=== PATIENT | male | born 1975 | race Caucasian/White ===

== ENCOUNTER 2016-06-27 07:38 | Emergency (ER) | payer MEDICAID ==
[~2016-06-27] VITALS: Ht 167.6 cm; Wt 78.0 kg
[~2016-06-27 07:38] MED LIST: ACET-6134 PO; ASPI81CT89 PO; IBUP-2213 PO; LISI-420 PO; METF1000 PO; PAX20 PO
[2016-06-27 07:49] VITALS: BP 126/76
--- NOTE | 2016-06-27 07:55 | NUR ---
AMBULATED TO ER BED 7
--- NOTE | 2016-06-27 07:59 | NUR ---
PATIENT PRESENTS TO ED WITH C/O OF THROAT PAIN . PT STATES HE HAS BEEN FEELING THROAT PAIN FOR THE LAST THREE DAYS. PATIENT ALSO REPORTS OF DIARRHEA AND NAUSEA BUT DENIES VOMITING; SKIN IS PINK/WARM/DRY; AAOX4 WITH EVEN AND STEADY GAIT; LUNGS CLEAR BL; HR EVEN AND REGULAR; PT DENIES ANY FEVER, CP, SOB, OR COUGH AT THIS TIME; PATIENT STATES PAIN OF 10/10 AT THIS TIME; VSS; PATIENT POSITIONED FOR COMFORT; HOB ELEVATED; BEDRAILS UP X2; BED DOWN. ER MD MADE AWARE OF PT STATUS.
--- NOTE | 2016-06-27 08:16 | NUR ---
Patient being evaluated by physician at bedside.
[2016-06-27] MEDS ORDERED: MORPHINE SULFATE 2 MG/ML SYR IVP ONE (08:25)
[2016-06-27] MEDS ORDERED: ONDANSETRON 4 MG/2 ML VIAL IVP ONE (08:25)
[2016-06-27] MEDS ORDERED: NACL 0.9% 2,000 ML IV ONE (08:25)
[2016-06-27] MEDS ORDERED: CLINDAMYCIN 600 MG in DEXTROSE 5% 50 ML IV ONE (08:25)
[2016-06-27 08:41] LABS: HEMOGLOBIN 13.8 g/dL (12.0-18.0)
[2016-06-27 08:44] LABS: HEMATOCRIT 41.7 % (36-52); MEAN CORPUSCULAR HEMOGLOBIN 30 pg (27-31); MEAN CORPUSCULAR HGB CONC 33 g/dL (33-37); MEAN CORPUSCULAR VOLUME 89 fL (80-94); PLATELET COUNT (AUTO) 254 K/uL (140-450); RED BLOOD CELL COUNT(AUTO) 4.67 MIL/uL (4.20-6.10); RED CELL DISTRIBUTION WIDTH 12.2 % (11.6-13.7); WHITE BLOOD COUNT (AUTO) 18.9 K/uL (4.8-10.8)
[2016-06-27] MEDS ORDERED: CLINDAMYCIN 600 MG/4 ML VIAL ONE ×2 (08:49→09:06)
[2016-06-27 08:58] LABS: CALCIUM 8.4 mg/dL (8.5-10.1); CARBON DIOXIDE 26.8 mmol/L (21-32); CREATININE 0.9 mg/dL (0.6-1.3); POTASSIUM 3.8 mmol/L (3.5-5.1)
[2016-06-27 09:00] LABS: BAND % (MANUAL) 2 % (0-8); EOSINOPHILS % (MANUAL) 1 % (0-4); LYMPHOCYTES % (MANUAL) 8 % (20-46); MONOCYTES % (MANUAL) 5 % (5-12); NEUTROPHILS % (MANUAL) 84 (43-65); PLATELET ESTIMATE ADEQUATE
[2016-06-27 09:02] LABS: ALBUMIN 3.7 g/dL (3.4-5.0); TOTAL BILIRUBIN 0.4 mg/dL (0.0-1.0)
[2016-06-27 09:06] LABS: LACTIC ACID 0.9 mmol/L (0.4-2.0)
--- NOTE | 2016-06-27 09:17 | NUR ---
PATIENT LEFT FOR CT
[2016-06-27] MEDS ORDERED: KETOROLAC 30 MG/ML VIAL IVP ONE (09:40)
[2016-06-27] MEDS ORDERED: DEXAMETHASONE 10 MG/ML VIAL IVP ONE (09:40)
--- NOTE | 2016-06-27 10:00 | NUR ---
PATIENT ASLEEP IN BED. NO S/S OF DISTRESS NOTED. PATIENT'S PRESENT AT BEDSIDE
--- NOTE | 2016-06-27 10:24 | NUR ---
Dr. Mascorro re-evaluating patient at bedside.
[2016-06-27] MEDS ORDERED: MORPHINE SULFATE 4 MG/ML SYR IVP ONE (10:30)
--- NOTE | 2016-06-27 11:45 | NUR ---
CYRACOM USED BY THE DR TO SPEAK WITH THE PATIENT. NEGATIVE TURNER APPRENTICE INDIRA NEGATIVE TURNER APPRENTICE NUMBER [id number]
--- NOTE | 2016-06-27 11:46 | NUR ---
Dr. Mascorro re-evaluating patient at bedside.
[2016-06-27] MEDS ORDERED: HYDROcodone/APAP 10/325 MG 1 TAB TAB PO ONE (12:00)
--- NOTE | 2016-06-27 13:00 | NUR ---
Dr. Mascorro re-evaluating patient at bedside.
--- NOTE | 2016-06-27 13:15 | NUR ---
Patient discharged with v/s stable. Written and verbal after care instructions given and explained. Patient alert, oriented and verbalized understanding of instructions. Ambulatory with steady gait. All questions addressed prior to discharge. ID band removed. Patient advised to follow up with PMD. Rx of MOTRIN, NORCO, KEFLEX given. Patient educated on indication of medication including possible reaction and side effects. Opportunity to ask questions provided and answered.
[2016-06-27 13:18] VITALS: BP 118/77
[2016-06-29 10:09] LABS: HIV 1/0/2 ABS, QUAL Non Reactive (Non Reactive)
== END 2016-06-27 13:15 | disposition home or self-care (01) ==
LOC: MED 07:38
DX: J02.0 Streptococcal pharyngitis (principal); E11.9 Type 2 diabetes mellitus without complications; K21.9 Gastro-esophageal reflux disease without esophagitis; I10 Essential (primary) hypertension; Z79.82 Long term (current) use of aspirin; Z79.899 Other long term (current) drug therapy
CPT/HCPCS: 36415; 70491; 71010; 80053; 82948; 83605; 85025; 86702; 87040; 87081; 87804; 96365; 96375; 96376; 99285; J1100; J1885; J2270; J2405; J3490; J7030; J7060; Q0092; Q9967

== ENCOUNTER 2017-07-06 18:20 | Emergency (ER) | payer SELFPAY ==
[~2017-07-06] VITALS: Ht 170.2 cm; Wt 72.6 kg
[2017-07-06 18:28] VITALS: BP 139/87
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
--- NOTE | 2017-07-06 18:51 | NUR ---
PT SITTING UP IN BED, IN NAD. RESP EVEN AND UNLABORED,DENIES CP OR SOB. IN NAD. PT HERE WITH MULTIPLE COMPLAINTS. REPORTS NECK PAIN, DENIES TRAUMA. GENERALIZED WEAKNESS WITH CHANGE IN APPETITE. DENIES FEVERS/NAUSEA/VOMITTING/DIARRHEA. STATES. PT AAOX4, AILYN WORKERS COMPENSATION ADMINISTRATOR EQUAL, AMBUALTORY IN ER. SKIN W/D/I. ABD SOFT, NT TO PALPATION. REPORTS MILD HEADACHE WITH DIZZINES UPON STANDING. DENIES ANY VISION CHNAGES. IV SL INSERTED, AWAIITNG FOR ER MD CARTAGENA. SR ON MONITOR. VSS
[2017-07-06] MEDS ORDERED: NACL 0.9% 1,000 ML IV ONE ×2 (19:00→20:10)
[2017-07-06] MEDS ORDERED: KETOROLAC 30 MG/ML VIAL IVP ONE (19:00)
--- NOTE | 2017-07-06 19:17 | NUR ---
PT RESTING IN BED, RR EVEN AND UNLABORED. PT REPORTS 01/10 PAIN, ADMINISTERED 30MG TORADOL IVP ORDERED, STARTED NS BOLUS AT THIS TIME. COLLECTED INFLUENZA SWAB AND GIVEN TO COST CONTROL SUPERVISOR, COST CONTROL SUPERVISOR AT BEDSIDE TO DRAW BLOOD WORK. Addendum: 07/06/17 at 1943 by RAMESH RECEIVED REPORT FROM CHRISTOPHE MATRINEZ
[2017-07-06 19:24] LABS: BASOPHILS % (AUTO) 0.7 % (0.0-2.0); EOSINOPHILS # (AUTO) 0.1 K/uL (0-0.4); EOSINOPHILS % (AUTO) 2.1 % (0.0-4.0); HEMATOCRIT 37.6 % (36-52); HEMOGLOBIN 12.8 g/dL (12.0-18.0); LYMPHOCYTES # (AUTO) 1.6 K/uL (2.0-11.5); LYMPHOCYTES % (AUTO) 27.2 % (20.5-51.1); MEAN CORPUSCULAR HEMOGLOBIN 30 pg (27-31); MEAN CORPUSCULAR HGB CONC 34 g/dL (33-37); MEAN CORPUSCULAR VOLUME 87.5 fL (80-94); MONOCYTES # (AUTO) 0.5 K/uL (0.8-1.0); NEUTROPHILS # (AUTO) 3.6 K/uL (1.8-7.7); PLATELET COUNT (AUTO) 218 K/uL (140-450); WHITE BLOOD COUNT (AUTO) 5.9 K/uL (4.8-10.8)
[2017-07-06 19:46] LABS: ALBUMIN 3.5 g/dL (3.4-5.0); ANION GAP 11.5 (8-16); CARBON DIOXIDE 28.6 mmol/L (21-32); POTASSIUM 4.1 mmol/L (3.5-5.1); TOTAL BILIRUBIN 0.2 mg/dL (0.0-1.0)
[2017-07-06 19:56] LABS: CREATINE KINASE MB 2.6 ng/mL (0-3.6)
[2017-07-06] MEDS ORDERED: MORPHINE SULFATE 4 MG/ML SYR IVP ONE (20:10)
[2017-07-06 21:12] VITALS: BP 125/85
--- NOTE | 2017-07-06 21:12 | NUR ---
Patient discharged with v/s stable. Written and verbal after care instructions given and explained. Patient alert, oriented and verbalized understanding of instructions. Ambulatory with steady gait. All questions addressed prior to discharge. ID band removed. Patient advised to follow up with PMD. Rx of NAPROSYN 500MG given. Patient educated on indication of medication including possible reaction and side effects. Opportunity to ask questions provided and answered.
== END 2017-07-06 21:12 | disposition home or self-care (01) ==
LOC: MED 18:20
DX: M79.1 Myalgia (principal); R53.1 Weakness; E11.9 Type 2 diabetes mellitus without complications; K21.9 Gastro-esophageal reflux disease without esophagitis; I10 Essential (primary) hypertension; Z79.84 Long term (current) use of oral hypoglycemic drugs; Z79.82 Long term (current) use of aspirin; Z79.899 Other long term (current) drug therapy
CPT/HCPCS: 36415; 71045; 80053; 82550; 82553; 82948; 83690; 84484; 85025; 87804; 93005; 96361; 96374; 96375; 99285; J1885; J2270; Q0092

== ENCOUNTER 2017-09-24 14:23 | Emergency (ER) | payer MEDICAID ==
[~2017-09-24] VITALS: Ht 165.1 cm; Wt 72.6 kg
[2017-09-24 14:31] VITALS: BP 123/71
--- NOTE | 2017-09-24 14:36 | NUR ---
PT AMBULATES BACK TO THE LOBBY
--- NOTE | 2017-09-24 15:12 | NUR ---
PATIENT AMULATED TO ER BED 6
--- NOTE | 2017-09-24 15:13 | NUR ---
42Y/M BIB SELF C/O RT LEG PAIN INGUENAL AREA AND LATERAL LOWER LEG WITH DISCOLORATION X 8 DAYS; S/P FALL PLAYING SOCCER; DENIES ALOC, DIZZINESS OR N/VD, ABLE TO AMBULATE. AAOX4 WITH EVEN AND STEADY GAIT; PATIENT STATES PAIN OF 10/10 AT THIS TIME; VSS; PATIENT POSITIONED FOR COMFORT; HOB ELEVATED; BEDRAILS UP X1; BED DOWN. ER MD MADE AWARE OF PT STATUS.
--- NOTE | 2017-09-24 16:55 | NUR ---
Dr. Hernandez evaluating patient at bedside.
[2017-09-24 18:45] VITALS: BP 122/70
== END 2017-09-24 18:45 | disposition home or self-care (01) ==
LOC: MED 14:23
DX: S76.911A Strain of unspecified muscles, fascia and tendons at thigh level, right thigh, initial encounter (principal); E11.9 Type 2 diabetes mellitus without complications; K21.9 Gastro-esophageal reflux disease without esophagitis; I10 Essential (primary) hypertension; X58.XXXA Exposure to other specified factors, initial encounter; Y93.89 Activity, other specified; Y99.8 Other external cause status; Y92.89 Other specified places as the place of occurrence of the external cause
CPT/HCPCS: 93971; 99284; Q0092

== ENCOUNTER 2018-03-07 17:24 | Emergency (ER) | payer MEDICAID ==
[~2018-03-07] VITALS: Ht 162.6 cm; Wt 72.1 kg
[2018-03-07 17:30] VITALS: BP 150/75
[2018-03-07] MEDS ORDERED: KETOROLAC 60 MG/2 ML VIAL IM ONE (18:35)
[2018-03-07] MEDS ORDERED: fentaNYL 0.05 MG/ML VIAL IM ONE (20:10)
[2018-03-07 21:00] VITALS: BP 150/75
== END 2018-03-07 21:00 | disposition home or self-care (01) ==
LOC: MED 17:24
DX: S39.012A Strain of muscle, fascia and tendon of lower back, initial encounter (principal); E11.9 Type 2 diabetes mellitus without complications; K21.9 Gastro-esophageal reflux disease without esophagitis; I10 Essential (primary) hypertension; Z79.84 Long term (current) use of oral hypoglycemic drugs; Z79.82 Long term (current) use of aspirin; Z79.899 Other long term (current) drug therapy; X58.XXXA Exposure to other specified factors, initial encounter; Y93.89 Activity, other specified; Y92.89 Other specified places as the place of occurrence of the external cause; Y99.8 Other external cause status
CPT/HCPCS: 81002; 96372; 99283; J1885; J3010

== ENCOUNTER 2018-08-28 03:15 | Emergency (ER) | payer MEDICAID ==
[~2018-08-28] VITALS: Ht 167.6 cm; Wt 76.2 kg
[~2018-08-28 03:15] MED LIST changes: +ASPI-1718 PO; -ASPI81CT89 PO
[2018-08-28 03:20] VITALS: BP 122/76
--- NOTE | 2018-08-28 03:25 | NUR ---
PT TAKEN TO BED 3
--- NOTE | 2018-08-28 03:30 | NUR ---
PT BIB SELF C/O DIARRHEA. PT STATES DIARRHEA STARTED TODAY, DENIES TRAUMA, INJURY OR EVIDENCE OF BLOOD IN STOOL; STATES HE TOOK XENIA SELTZER AND PEPTO AT HOME W/O RELIEF. PT STATES 01/10 ABD CRAMPING. PT ACTING APPROPRIATLY, SPEAKING IN CLEAR AND COMPLETE SENTENCES. BREATHING EQUAL AND UNLABORED. ACTIVE BOWEL SOUNDS THROUGH OUT. PT IN GOWN, IN BED; BED IN LOWER LOCKED POSITION. PENDING ER MD CARTAGENA. PMH: DIABETES, HTN
[2018-08-28] MEDS ORDERED: DICYCLOMINE HCL LIQUID 10 MG/5 ML UDC PO ONE (04:15)
[2018-08-28] MEDS ORDERED: NACL 0.9% 1,000 ML IV ONE (04:15)
[2018-08-28] MEDS ORDERED: KETOROLAC 30 MG/ML VIAL IVP ONE (04:15)
[2018-08-28 04:34] LABS: BASOPHILS % (AUTO) 0.5 % (0.0-2.0); EOSINOPHILS # (AUTO) 0.2 K/uL (0-0.4); EOSINOPHILS % (AUTO) 2.4 % (0.0-4.0); HEMATOCRIT 41.1 % (36-52); HEMOGLOBIN 14.1 g/dL (12.0-18.0); LYMPHOCYTES # (AUTO) 1.8 K/uL (2.0-11.5); LYMPHOCYTES % (AUTO) 26.7 % (20.5-51.1); MEAN CORPUSCULAR HEMOGLOBIN 30 pg (27-31); MEAN CORPUSCULAR HGB CONC 34 g/dL (33-37); MEAN CORPUSCULAR VOLUME 88.2 fL (80-94); MONOCYTES # (AUTO) 0.6 K/uL (0.8-1.0); MONOCYTES % (AUTO) 9.5 % (1.7-9.3); NEUTROPHILS # (AUTO) 4.1 K/uL (1.8-7.7); NEUTROPHILS % (AUTO) 60.9 % (42.2-75.2); PLATELET COUNT (AUTO) 234 K/uL (140-450); RED BLOOD CELL COUNT(AUTO) 4.67 MIL/uL (4.20-6.10); RED CELL DISTRIBUTION WIDTH 13.4 % (11.6-13.7); WHITE BLOOD COUNT (AUTO) 6.7 K/uL (4.8-10.8)
[2018-08-28 04:53] LABS: ALBUMIN 3.7 g/dL (3.4-5.0); ANION GAP 10.8 (8-16); CARBON DIOXIDE 27.1 mmol/L (21-32); CREATININE 0.8 mg/dL (0.7-1.3); POTASSIUM 3.9 mmol/L (3.5-5.1); TOTAL BILIRUBIN 0.2 mg/dL (0.0-1.0)
--- NOTE | 2018-08-28 05:00 | NUR ---
BLANKET AND COMFORT MEASURES PROVIDED TO PT AT THIS TIME.
--- NOTE | 2018-08-28 05:47 | NUR ---
PT AROUSABLE TO VOICE. PT OPENING AND CLOSING EYES, SPEAKING IN CLEAR AND COMPLETE SENTENCES. PT STATES PAIN HAS DECREASED TO 2/10 AT THIS TIME.
--- NOTE | 2018-08-28 06:05 | NUR ---
Patient discharged with v/s stable. Patient states he feels better and ready to go home; states 2/10 pain at this time. Written and verbal after care instructions given and explained. Patient alert, oriented and verbalized understanding of instructions. Ambulatory with steady gait. All questions addressed prior to discharge. ID band removed. Patient advised to follow up with PMD. Rx of Bentyl given. Patient educated on indication of medication including possible reaction and side effects. Opportunity to ask questions provided and answered.
[2018-08-28 06:07] VITALS: BP 135/81
== END 2018-08-28 06:05 | disposition home or self-care (01) ==
LOC: MED 03:15
DX: K85.90 Acute pancreatitis without necrosis or infection, unspecified (principal); E86.0 Dehydration; E11.9 Type 2 diabetes mellitus without complications; I10 Essential (primary) hypertension; F17.200 Nicotine dependence, unspecified, uncomplicated; Z79.82 Long term (current) use of aspirin; Z79.84 Long term (current) use of oral hypoglycemic drugs; Z79.899 Other long term (current) drug therapy
CPT/HCPCS: 36415; 80053; 85025; 96361; 96374; 99283; J1885; J7030

== ENCOUNTER 2019-03-10 17:09 | Emergency (ER) | payer MEDICAID ==
[~2019-03-10] VITALS: Ht 167.6 cm; Wt 72.6 kg
[2019-03-10 17:18] VITALS: BP 134/87
[2019-03-10] MEDS: DICYCLOMINE 20 MG/2 ML VIAL IM ONE (18:21)
[2019-03-10] MEDS: KETOROLAC 60 MG/2 ML VIAL IM ONE (18:21)
[2019-03-10] MEDS: metroNIDAZOLE 250 MG TAB PO ONE (18:21)
[2019-03-10] MEDS: LOPERAMIDE 2 MG CAP PO ONE (18:22)
[2019-03-10 18:47] VITALS: BP 126/80
== END 2019-03-10 18:47 | disposition home or self-care (01) ==
LOC: MED 17:09
DX: K12.1 Other forms of stomatitis (principal); R19.7 Diarrhea, unspecified; Z79.82 Long term (current) use of aspirin; Z79.899 Other long term (current) drug therapy
CPT/HCPCS: 96372; 99283; J0500; J1885

== ENCOUNTER 2019-03-14 22:33 | Emergency (ER) | payer MEDICAID ==
[~2019-03-14] VITALS: Ht 167.6 cm; Wt 72.6 kg
[2019-03-14 22:48] VITALS: BP 114/68
[2019-03-14] MEDS ORDERED: NACL 0.9% 1,000 ML IV ONE (23:34)
[2019-03-14] MEDS ORDERED: MORPHINE SULFATE 4 MG/ML SYR IVP ONE (23:35)
[2019-03-14] MEDS ORDERED: ONDANSETRON 4 MG/2 ML VIAL IVP ONE (23:35)
--- NOTE | 2019-03-14 23:36 | NUR ---
PT AMBULATED TO BED 11
--- NOTE | 2019-03-15 00:01 | NUR ---
PT RETURNED FROM CT VIA W/C
[2019-03-15 00:04] LABS: BASOPHILS % (AUTO) 0.5 % (0.0-2.0); EOSINOPHILS # (AUTO) 0.2 K/uL (0-0.4); EOSINOPHILS % (AUTO) 3.8 % (0.0-4.0); HEMATOCRIT 42.7 % (36-52); HEMOGLOBIN 14.3 g/dL (12.0-18.0); LYMPHOCYTES # (AUTO) 1.9 K/uL (2.0-11.5); LYMPHOCYTES % (AUTO) 33.1 % (20.5-51.1); MEAN CORPUSCULAR HEMOGLOBIN 30 pg (27-31); MEAN CORPUSCULAR HGB CONC 34 g/dL (33-37); MONOCYTES # (AUTO) 0.6 K/uL (0.8-1.0); MONOCYTES % (AUTO) 10.3 % (1.7-9.3); NEUTROPHILS % (AUTO) 52.3 % (42.2-75.2); PLATELET COUNT (AUTO) 220 K/uL (140-450); RED BLOOD CELL COUNT(AUTO) 4.74 MIL/uL (4.20-6.10); WHITE BLOOD COUNT (AUTO) 5.6 K/uL (4.8-10.8)
[2019-03-15 00:06] LABS: ALBUMIN 4.4 g/dL (3.4-5.0); ANION GAP 11.1 (8-16); CARBON DIOXIDE 27.3 mmol/L (21-32); CREATININE 0.8 mg/dL (0.7-1.3); POTASSIUM 4.4 mmol/L (3.5-5.1); TOTAL BILIRUBIN 0.3 mg/dL (0.0-1.0)
--- NOTE | 2019-03-15 00:40 | NUR ---
43 YEAR OLD MALE COMPLAINS OF SHARP ABDOMINAL 10/10 PAIN X 6 DAYS. PATIENT STATES NAUSEA, VOMITTING, AND DIARRHEA X 6 DAYS. BOWEL SOUNDS ACTIVE X4, RUQ PAIN ON PALPATION. PATIENT ALERT AND ORIENTED, BREATHING EVEN AND UNLABORED. PATIENT STATES PMH IS DIABETES, HYPERTENSION, AND HYPERLIPIDEMIA. BED IN LOWEST POSITION, LOCKED, BED RAIL UPX1
[2019-03-15] MEDS ORDERED: MORPHINE SULFATE 4 MG/ML SYR ONE (00:41)
[2019-03-15] MEDS ORDERED: ONDANSETRON 4 MG/2 ML VIAL ONE (00:43)
--- NOTE | 2019-03-15 01:45 | NUR ---
PT RESTING COMFORTABLY WITH EYES CLOSED. BREATHING EVEN, UNLABORED. SKIN PINK, WARM, DRY. AROUSABLE TO VERBAL STIMULI. REPORTS IMPROVEMENT IN PAIN; 5/10.
[2019-03-15 02:58] LABS: APPEARANCE,URINE CLEAR (CLEAR); BILIRUBIN,URINE NEGATIVE (NEGATIVE); BLOOD, URINE TRACE-I (NEGATIVE); COLOR,URINE YELLOW (YELLOW); LEUKOCYTE ESTERASE ,URINE NEGATIVE (NEGATIVE); NITRITE, URINE NEGATIVE (NEGATIVE); PH,URINE 6.5 (5.0-9.0); UGLUCOSE 3+ (NEGATIVE)
[2019-03-15 03:11] VITALS: BP 112/61
--- NOTE | 2019-03-15 03:11 | NUR ---
Patient discharged with v/s stable. Written and verbal after care instructions given and explained. Patient alert, oriented and verbalized understanding of instructions. Ambulatory with steady gait. All questions addressed prior to discharge. ID band removed. Patient advised to follow up with PMD. Rx of BENTYL given. Patient educated on indication of medication including possible reaction and side effects. Opportunity to ask questions provided and answered.
[2019-03-15 04:15] LABS: RBC,URINE 0-5 /HPF (0-5); WBC,URINE NONE SEEN /HPF (0-5)
== END 2019-03-15 03:11 | disposition home or self-care (01) ==
LOC: MED 22:33
DX: R10.84 Generalized abdominal pain (principal); R19.7 Diarrhea, unspecified; R11.2 Nausea with vomiting, unspecified; E11.9 Type 2 diabetes mellitus without complications; I10 Essential (primary) hypertension; Z79.82 Long term (current) use of aspirin; Z79.84 Long term (current) use of oral hypoglycemic drugs; Z79.899 Other long term (current) drug therapy
CPT/HCPCS: 36415; 74176; 80053; 81001; 83690; 85025; 96361; 96374; 96375; 99284; J2270; J2405

== ENCOUNTER 2019-07-13 20:45 | Inpatient (IN) | payer MEDICAID, SELFPAY ==
[~2019-07-13] VITALS: Ht 162.6 cm; Wt 73.0 kg
[~2019-07-13 20:45] MED LIST changes: -ASPI-1718 PO; +ASPI-1822 PO
[2019-07-13 21:45] LABS: BASOPHILS % (AUTO) 0.6 % (0.0-2.0); EOSINOPHILS # (AUTO) 0.1 K/uL (0-0.4); EOSINOPHILS % (AUTO) 2.6 % (0.0-4.0); HEMATOCRIT 40.3 % (36-52); HEMOGLOBIN 13.6 g/dL (12.0-18.0); LYMPHOCYTES # (AUTO) 2.1 K/uL (2.0-11.5); LYMPHOCYTES % (AUTO) 36.4 % (20.5-51.1); MEAN CORPUSCULAR HEMOGLOBIN 30 pg (27-31); MEAN CORPUSCULAR HGB CONC 34 g/dL (33-37); MEAN CORPUSCULAR VOLUME 89.4 fL (80-94); MONOCYTES # (AUTO) 0.7 K/uL (0.8-1.0); MONOCYTES % (AUTO) 12.4 % (1.7-9.3); NEUTROPHILS # (AUTO) 2.7 K/uL (1.8-7.7); PLATELET COUNT (AUTO) 249 K/uL (140-450); RED BLOOD CELL COUNT(AUTO) 4.51 MIL/uL (4.20-6.10); RED CELL DISTRIBUTION WIDTH 13.5 % (11.6-13.7); WHITE BLOOD COUNT (AUTO) 5.7 K/uL (4.8-10.8)
[2019-07-13 21:59] LABS: ANION GAP 13.5 (8-16); CARBON DIOXIDE 28.6 mmol/L (21-32); CREATININE 0.9 mg/dL (0.6-1.3); POTASSIUM 4.1 mmol/L (3.5-5.1); TOTAL BILIRUBIN 0.3 mg/dL (0.0-1.0)
[2019-07-13] MEDS ORDERED: GLIP10TE PO (22:12)
[2019-07-13] MEDS ORDERED: GEMF600T5 PO (22:12)
[2019-07-13 22:17] LABS: PROTHROMBIN TIME 9.5 secs (10.8-13.4)
[2019-07-13] MEDS ORDERED: NITROGLYCERIN 0.4 MG TAB SL PRN (23:25)
[2019-07-13] MEDS ORDERED: DOCUSATE SODIUM 100 MG GELCAP PO PRN (23:25)
[2019-07-13] MEDS ORDERED: ONDANSETRON 4 MG/2 ML VIAL IM/IVP PRN (23:25)
[2019-07-13] MEDS ORDERED: DEXTROSE 50% 50 ML SYR IVP PRN (23:25)
[2019-07-13] MEDS ORDERED: ACETAMINOPHEN 325 MG TAB PO PRN (23:25)
[2019-07-13 23:55] LABS: AMYLASE 50 U/L (25-115); LIPASE 105 U/L (73-393); MAGNESIUM 2.1 mg/dL (1.8-2.4); PHOSPHORUS 3.9 mg/dL (2.5-4.9); THYROID STIMULATING HORMONE 3.82 uIU/mL (0.34-3.74)
[2019-07-14] MEDS ORDERED: ASPIRIN 325 MG TAB PO ONE (00:20)
[2019-07-14 01:00] VITALS: BP 120/80
[2019-07-14 01:01] LABS: LACTATE DEHYDROGENASE 133 U/L (85-227)
[2019-07-14 01:09] LABS: RSV NEGATIVE (NEGATIVE)
[2019-07-14] MEDS: HYDROcodone/APAP 5/325 MG 1 TAB TAB PO PRN ×3 (02:58→22:00)
[2019-07-14] MEDS: NACL 0.9% 1,000 ML IV SCH ×2 (03:00→16:45)
[2019-07-14] MEDS: BLOOD GLUCOSE MONITORING 1 DEV DEV FS SCH ×4 (05:50→21:42)
[2019-07-14 06:15] LABS: BASOPHILS % (AUTO) 0.4 % (0.0-2.0); EOSINOPHILS # (AUTO) 0.1 K/uL (0-0.4); EOSINOPHILS % (AUTO) 1.2 % (0.0-4.0); HEMATOCRIT 39.5 % (36-52); HEMOGLOBIN 13.4 g/dL (12.0-18.0); LYMPHOCYTES # (AUTO) 1.9 K/uL (2.0-11.5); LYMPHOCYTES % (AUTO) 32.6 % (20.5-51.1); MEAN CORPUSCULAR HEMOGLOBIN 31 pg (27-31); MEAN CORPUSCULAR HGB CONC 34 g/dL (33-37); MEAN CORPUSCULAR VOLUME 89.8 fL (80-94); MONOCYTES # (AUTO) 0.7 K/uL (0.8-1.0); MONOCYTES % (AUTO) 11.8 % (1.7-9.3); NEUTROPHILS # (AUTO) 3.2 K/uL (1.8-7.7); PLATELET COUNT (AUTO) 244 K/uL (140-450); RED CELL DISTRIBUTION WIDTH 13.5 % (11.6-13.7)
[2019-07-14] MEDS: INSULIN LISPRO SLIDING SCALE 100 UNITS/ML VIAL SUBQ PRN ×4 (06:15→21:49)
[2019-07-14 06:38] LABS: ANION GAP 12.1 (8-16); CARBON DIOXIDE 29.4 mmol/L (21-32); CREATININE 0.9 mg/dL (0.6-1.3); POTASSIUM 4.5 mmol/L (3.5-5.1)
[2019-07-14 06:45] LABS: CHOL/HDL RATIO 3.5 (1-4.5); PHOSPHORUS 3.9 mg/dL (2.5-4.9)
[2019-07-14 08:00] VITALS: BP 106/79
[2019-07-14] MEDS: ATORVASTATIN 20 MG TAB PO SCH ×2 (08:32→08:38)
[2019-07-14] MEDS: metFORMIN 500 MG TAB PO SCH ×2 (08:34→16:46)
[2019-07-14] MEDS: PANTOPRAZOLE 40 MG TABEC PO SCH (08:38)
[2019-07-14] MEDS: ASPIRIN 81 MG TAB.CHEW PO SCH (08:38)
[2019-07-14] MEDS: LISINOPRIL 20 MG TAB PO SCH (08:39)
[2019-07-14] MEDS: glipiZIDE ER 5 MG TABER PO SCH (08:44)
[2019-07-14 12:00] VITALS: BP 105/69
[2019-07-14 16:00] VITALS: BP 112/72
[2019-07-14 20:00] VITALS: BP_SYST 114; BP_SYST 98; BP_DIAS 54; BP_DIAS 78
[2019-07-14 23:25] LABS: APPEARANCE,URINE CLEAR (CLEAR); BILIRUBIN,URINE NEGATIVE (NEGATIVE); BLOOD, URINE TRACE-I (NEGATIVE); COLOR,URINE YELLOW (YELLOW); LEUKOCYTE ESTERASE ,URINE NEGATIVE (NEGATIVE); NITRITE, URINE NEGATIVE (NEGATIVE); UGLUCOSE TRACE (NEGATIVE)
[2019-07-14 23:34] LABS: BARBITURATE, URINE NEGATIVE ng/ml (NEG <=200); BENZODIAZEPINE, URINE NEGATIVE ng/mL (NEG <=200); CANNABINOID, URINE NEGATIVE ng/mL (NEG <=50); COCAINE, URINE NEGATIVE ng/mL (NEG <=300); OPIATE, URINE NEGATIVE ng/mL (NEG <=2000); PHENCYCLIDINE SCREEN,URINE NEGATIVE ng/mL (NEG <=25)
[2019-07-14 23:35] LABS: RBC,URINE 0-5 /HPF (0-5); WBC,URINE 0-5 /HPF (0-5)
[2019-07-15] VITALS: BP 98/54
[2019-07-15 04:00] VITALS: BP 90/54
[2019-07-15] MEDS: BLOOD GLUCOSE MONITORING 1 DEV DEV FS SCH ×2 (06:06→11:21)
[2019-07-15] MEDS: INSULIN LISPRO SLIDING SCALE 100 UNITS/ML VIAL SUBQ PRN ×2 (06:07→11:20)
[2019-07-15 06:59] LABS: BASOPHILS % (AUTO) 0.4 % (0.0-2.0); EOSINOPHILS # (AUTO) 0.1 K/uL (0-0.4); EOSINOPHILS % (AUTO) 1.6 % (0.0-4.0); HEMATOCRIT 41.2 % (36-52); HEMOGLOBIN 13.8 g/dL (12.0-18.0); LYMPHOCYTES # (AUTO) 2.1 K/uL (2.0-11.5); LYMPHOCYTES % (AUTO) 37.6 % (20.5-51.1); MEAN CORPUSCULAR HEMOGLOBIN 30 pg (27-31); MEAN CORPUSCULAR HGB CONC 34 g/dL (33-37); MEAN CORPUSCULAR VOLUME 89.7 fL (80-94); MONOCYTES # (AUTO) 0.6 K/uL (0.8-1.0); MONOCYTES % (AUTO) 11.3 % (1.7-9.3); NEUTROPHILS # (AUTO) 2.8 K/uL (1.8-7.7); NEUTROPHILS % (AUTO) 49.1 % (42.2-75.2); PLATELET COUNT (AUTO) 231 K/uL (140-450); RED CELL DISTRIBUTION WIDTH 13.3 % (11.6-13.7); WHITE BLOOD COUNT (AUTO) 5.7 K/uL (4.8-10.8)
[2019-07-15 07:07] LABS: ALBUMIN 3.6 g/dL (3.4-5.0); ANION GAP 12.2 (8-16); CARBON DIOXIDE 27.9 mmol/L (21-32); CREATININE 0.8 mg/dL (0.6-1.3); MAGNESIUM 1.8 mg/dL (1.8-2.4); POTASSIUM 4.1 mmol/L (3.5-5.1); TOTAL BILIRUBIN 0.4 mg/dL (0.0-1.0)
[2019-07-15 08:00] VITALS: BP 117/88
[2019-07-15] MEDS: LISINOPRIL 20 MG TAB PO SCH (09:04)
[2019-07-15] MEDS: glipiZIDE ER 5 MG TABER PO SCH (09:05)
[2019-07-15] MEDS: NACL 0.9% 1,000 ML IV SCH (09:12)
[2019-07-15] MEDS: ASPIRIN 81 MG TAB.CHEW PO SCH (09:12)
[2019-07-15] MEDS: metFORMIN 500 MG TAB PO SCH (09:12)
[2019-07-15] MEDS: ATORVASTATIN 20 MG TAB PO SCH (09:13)
[2019-07-15] MEDS: PANTOPRAZOLE 40 MG TABEC PO SCH (09:13)
[2019-07-15 11:23] VITALS: BP 114/80
[2019-07-15 12:00] VITALS: BP 114/80
[2019-07-15 12:15] VITALS: BP 114/80
== END 2019-07-15 13:20 | disposition home or self-care (01) | DRG 243 ==
LOC: MED 20:45 → MTU 23:29 → UNDOADMIN 23:29 → EEVIPCON 23:29
PROVIDERS: ADMIT General Practice; ATTEND General Practice
DX: K21.9 Gastro-esophageal reflux disease without esophagitis (principal); R65.10 Systemic inflammatory response syndrome (SIRS) of non-infectious origin without acute organ dysfunction; M94.0 Chondrocostal junction syndrome [Tietze]; B34.9 Viral infection, unspecified; E11.9 Type 2 diabetes mellitus without complications; E78.5 Hyperlipidemia, unspecified; I10 Essential (primary) hypertension; F41.9 Anxiety disorder, unspecified; E02 Subclinical iodine-deficiency hypothyroidism; J20.8 Acute bronchitis due to other specified organisms; Z83.3 Family history of diabetes mellitus; Z03.818 Encounter for observation for suspected exposure to other biological agents ruled out
CPT/HCPCS: 36415; 36600; 71045; 80048; 80053; 80305; 81001; 82150; 82550; 82728; 82803; 82948; 83036; 83605; 83615; 83690; 83735; 83880; 84100; 84134; 84439; 84443; 84484; 85025; 85610; 85651; 85730; 86140; 86308; 87040; 87081; 87086; 87420; 87804; 99285; G0482; J1644; J7030; Q0092

== ENCOUNTER 2020-07-15 18:44 | Emergency (ER) | payer MEDICAID, SELFPAY ==
[~2020-07-15] VITALS: Ht 162.6 cm; Wt 78.0 kg
[~2020-07-15 18:44] MED LIST changes: -ACET-6134 PO; +GEMF600T5 PO; +GLIP10TE PO; -IBUP-2213 PO; -LISI-420 PO; +LISI-487 PO; -PAX20 PO
[2020-07-15 19:04] VITALS: BP 130/61
--- NOTE | 2020-07-15 19:11 | NUR ---
Indy dallas in [facility] - 07/15/20 at 1912 by MED1 PATIENT AMBULATED TO BED 8.
--- NOTE | 2020-07-15 19:59 | NUR ---
44 Y/O MALE CAME TO THE ED WITH SORE THROAT AND HEADACHE X2 DAYS. PT STATES HE HAS A FEVER, AND FEELS "COLD", BUT NO CHILLS. DENIES N/V/D; SKIN IS PINK/WARM/DRY; AAOX4 WITH EVEN AND STEADY GAIT; LUNGS CLEAR BL; HR EVEN AND REGULAR; PT DENIES ANY FEVER, CP, SOB, OR COUGH AT THIS TIME; PATIENT STATES PAIN OF 8/10 THROAT PAIN AT THIS TIME; VSS; PATIENT POSITIONED FOR COMFORT; HOB ELEVATED; BEDRAILS UP X2; BED DOWN. ER MD MADE AWARE OF PT STATUS. PMH: DM, HTN. HLD NKA
[2020-07-15] MEDS ORDERED: KETOROLAC 30 MG/ML VIAL IM ONE (20:30)
[2020-07-15 21:11] VITALS: BP 130/61
--- NOTE | 2020-07-15 21:11 | NUR ---
Patient discharged with v/s stable. Written and verbal after care instructions given and explained. Patient verbalized understanding. Ambulatory with steady gait. All questions addressed prior to discharge. Advised to follow up with PMD.
== END 2020-07-15 21:11 | disposition home or self-care (01) ==
LOC: MED 18:44
DX: R68.83 Chills (without fever) (principal); Z20.822 Contact with and (suspected) exposure to COVID-19; T50.B95A Adverse effect of other viral vaccines, initial encounter; M79.10 Myalgia, unspecified site; E11.9 Type 2 diabetes mellitus without complications; I10 Essential (primary) hypertension; E78.5 Hyperlipidemia, unspecified; Z79.84 Long term (current) use of oral hypoglycemic drugs; Z79.899 Other long term (current) drug therapy; Z79.82 Long term (current) use of aspirin; Y92.89 Other specified places as the place of occurrence of the external cause
CPT/HCPCS: 96372; 99283; J1885; U0003

== ENCOUNTER 2020-11-22 18:18 | Emergency (ER) | payer MEDICAID, SELFPAY ==
[~2020-11-22] VITALS: Ht 167.6 cm; Wt 70.3 kg
[2020-11-22 18:30] VITALS: BP 109/73
[2020-11-22] MEDS ORDERED: IBUPROFEN 600 MG TAB PO ONE (19:25)
[2020-11-22] MEDS ORDERED: CEPH-588 PO (19:26)
[2020-11-22] MEDS ORDERED: IBUP-2213 PO (19:26)
--- NOTE | 2020-11-22 19:40 | NUR ---
d/c with VSS. d/c education given. opportunity to ask questions given and answered. rx of keflex and motrin given.
== END 2020-11-22 19:40 | disposition home or self-care (01) ==
LOC: MED 18:18
DX: S63.615A Unspecified sprain of left ring finger, initial encounter (principal); L03.012 Cellulitis of left finger; E11.9 Type 2 diabetes mellitus without complications; I10 Essential (primary) hypertension; Z79.899 Other long term (current) drug therapy; Z79.84 Long term (current) use of oral hypoglycemic drugs; Z79.82 Long term (current) use of aspirin; W22.8XXA Striking against or struck by other objects, initial encounter; Y93.89 Activity, other specified; Y92.89 Other specified places as the place of occurrence of the external cause; Y99.8 Other external cause status
CPT/HCPCS: 73140; 99283

== ENCOUNTER 2021-05-22 18:12 | Emergency (ER) | payer MEDICAID, SELFPAY ==
[~2021-05-22] VITALS: Ht 162.6 cm; Wt 78.0 kg
[~2021-05-22 18:12] MED LIST changes: +CEPH-588 PO; +IBUP-2213 PO; +METF500T PO; +[UNRECOGNIZED DRUG - REMARK] PO
[2021-05-22 18:26] VITALS: BP 140/69
--- NOTE | 2021-05-22 18:30 | NUR ---
Pt ambulated to bed 02 at this time
--- NOTE | 2021-05-22 18:50 | NUR ---
pt swabbed per order and taken to lab
[2021-05-22] MEDS ORDERED: LORA10TA19 PO (19:08)
[2021-05-22] MEDS ORDERED: IBUP-2213 PO (19:08)
[2021-05-22] MEDS ORDERED: ACET-10509 PO (19:08)
[2021-05-22 19:15] VITALS: BP 122/70
== END 2021-05-22 19:15 | disposition home or self-care (01) ==
LOC: MED 18:12
DX: U07.1 COVID-19 (principal); E11.9 Type 2 diabetes mellitus without complications; I10 Essential (primary) hypertension; Z79.84 Long term (current) use of oral hypoglycemic drugs; Z79.899 Other long term (current) drug therapy; Z79.82 Long term (current) use of aspirin
CPT/HCPCS: 99283

== ENCOUNTER 2021-06-05 17:44 | Emergency (ER) | payer MEDICAID, SELFPAY ==
[~2021-06-05] VITALS: Ht 172.7 cm; Wt 77.6 kg
[~2021-06-05 17:44] MED LIST changes: +ACET-10509 PO; +LORA10TA19 PO
[2021-06-05 18:22] VITALS: BP 149/90
[2021-06-05] MEDS ORDERED: ACETAMINOPHEN 325 MG TAB PO ONE (18:50)
[2021-06-05] MEDS ORDERED: KETOROLAC 30 MG/ML VIAL IM ONE (18:50)
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
--- NOTE | 2021-06-05 19:34 | NUR ---
Pt report given to CARLOS FRANCOIS. Transfer of care at this time.
[2021-06-05] MEDS ORDERED: NAPR-54 PO (19:49)
== END 2021-06-05 19:00 | disposition home or self-care (01) ==
LOC: MED 17:44
DX: R51.9 Headache, unspecified (principal); E11.9 Type 2 diabetes mellitus without complications; I10 Essential (primary) hypertension; Z79.899 Other long term (current) drug therapy; Z79.84 Long term (current) use of oral hypoglycemic drugs; Z79.82 Long term (current) use of aspirin
CPT/HCPCS: 96372; 99283; J1885

== ENCOUNTER 2021-08-23 13:55 | Emergency (ER) | payer MEDICAID ==
[~2021-08-23] VITALS: Ht 170.2 cm; Wt 75.7 kg
[~2021-08-23 13:55] MED LIST changes: +METF-1061 PO; +METF-564 PO; -METF1000 PO; -METF500T PO; +NAPR-54 PO
[2021-08-23 15:04] VITALS: BP 125/82
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
--- NOTE | 2021-08-23 15:45 | NUR ---
DR WARREN AT BEDSIDE EVALUATING PT
[2021-08-23] MEDS ORDERED: KETOROLAC 60 MG/2 ML VIAL IM ONE (15:50)
[2021-08-23] MEDS ORDERED: ONDA8TAB87 PO (16:17)
[2021-08-23] MEDS ORDERED: CIPR500T4 PO (16:17)
[2021-08-23] MEDS ORDERED: METR-435 PO (16:17)
[2021-08-23] MEDS ORDERED: IBUP-2213 PO (16:17)
[2021-08-23 16:38] VITALS: BP 122/78
--- NOTE | 2021-08-23 16:39 | NUR ---
Patient discharged with v/s stable. Written and verbal after care instructions given and explained. Patient alert, oriented and verbalized understanding of instructions. Ambulatory with steady gait. All questions addressed prior to discharge. ID band removed. Patient advised to follow up with PMD. Rx of CIPRO, IBUPROFEN, METRONIDAZOLE, ONDANSETRON given. Patient educated on indication of medication including possible reaction and side effects. Opportunity to ask questions provided and answered.
== END 2021-08-23 16:39 | disposition home or self-care (01) ==
LOC: MED 13:55
DX: R10.31 Right lower quadrant pain (principal); R10.32 Left lower quadrant pain; R19.7 Diarrhea, unspecified; E11.9 Type 2 diabetes mellitus without complications; I10 Essential (primary) hypertension; Z79.899 Other long term (current) drug therapy; Z79.84 Long term (current) use of oral hypoglycemic drugs; Z79.82 Long term (current) use of aspirin
CPT/HCPCS: 99283

== ENCOUNTER 2021-09-07 13:52 | Emergency (ER) | payer MEDICAID ==
[~2021-09-07] VITALS: Ht 162.6 cm; Wt 74.8 kg
[~2021-09-07 13:52] MED LIST changes: +CIPR500T4 PO; -METF-1061 PO; +METF-1274 PO; +METF-346 PO; -METF-564 PO; +METR-435 PO; +ONDA8TAB87 PO
[2021-09-07 14:17] VITALS: BP 126/75
[2021-09-07] MEDS ORDERED: FAMOTIDINE 20 MG/2 ML VIAL IVP ONE (15:15)
[2021-09-07] MEDS ORDERED: DICYCLOMINE 10 MG CAP PO ONE (15:15)
[2021-09-07] MEDS ORDERED: ONDANSETRON 4 MG/2 ML VIAL IVP ONE (15:15)
[2021-09-07 15:22] LABS: BASOPHILS % (AUTO) 0.6 % (0.0-2.0); EOSINOPHILS # (AUTO) 0.1 K/uL (0-0.4); EOSINOPHILS % (AUTO) 1.4 % (0.0-4.0); HEMATOCRIT 43.7 % (36-52); HEMOGLOBIN 14.9 g/dL (12.0-18.0); LYMPHOCYTES # (AUTO) 1.9 K/uL (2.0-11.5); LYMPHOCYTES % (AUTO) 25.5 % (20.5-51.1); MEAN CORPUSCULAR HEMOGLOBIN 31 pg (27-31); MEAN CORPUSCULAR HGB CONC 34 g/dL (33-37); MEAN CORPUSCULAR VOLUME 89.6 fL (80-94); MONOCYTES # (AUTO) 0.7 K/uL (0.8-1.0); MONOCYTES % (AUTO) 9.6 % (1.7-9.3); NEUTROPHILS # (AUTO) 4.7 K/uL (1.8-7.7); NEUTROPHILS % (AUTO) 62.9 % (42.2-75.2); PLATELET COUNT (AUTO) 249 K/uL (140-450); RED BLOOD CELL COUNT(AUTO) 4.88 MIL/uL (4.20-6.10); RED CELL DISTRIBUTION WIDTH 13.8 % (11.6-13.7); WHITE BLOOD COUNT (AUTO) 7.4 K/uL (4.8-10.8)
--- NOTE | 2021-09-07 15:30 | NUR ---
46YO MALE C/O N/V/D AND LEFT SIDED ABDOMINAL PAIN FOR 1MOS WORSE LAST WEEK. PT STATES HE WAS SEEN IN ED 08/23/21 FOR SAME S/S AND PRESCRIBED MEDICATIONS; NO RELIEF. UPON ASSESSMENT PT STATED LEFT SIDED ABDOMINAL TENDERNESS. PT ALSO STATES "I GET REALLY SLEPY RIGHT AFTER I EAT." PT STATES GLUCOSE BASELINE IS 115-120. PMH: DM, HTN, HYPERLIPIDEMIA ALLERGIES: DENIES MEDS: CIPRO(FINISHED), METRONIDAZOLE(FINISHED), IBUPROFEN(FINISHED), ZOFRAN(FINISHED) CHARTED BY RAVI MONTAGUE
[2021-09-07 15:38] LABS: ANION GAP 12.6 (8-16); CARBON DIOXIDE 25.3 mmol/L (21-32); POTASSIUM 3.9 mmol/L (3.5-5.1)
[2021-09-07 15:47] LABS: ALBUMIN 3.8 g/dL (3.4-5.0); TOTAL BILIRUBIN 0.2 mg/dL (0.0-1.0)
--- NOTE | 2021-09-07 16:00 | NUR ---
Patient appears to be resting comfortably in bed. Vital Signs within normal limits. Respirations even and unlabored.
[2021-09-07] MEDS ORDERED: NACL 0.9% 1,000 ML IV ONE (16:25)
[2021-09-07] MEDS ORDERED: ALUM355S59 PO (16:26)
[2021-09-07] MEDS ORDERED: BEN10 PO (16:26)
[2021-09-07] MEDS ORDERED: FAMO-90 PO (16:27)
[2021-09-07 17:55] VITALS: BP 126/75
--- NOTE | 2021-09-07 17:55 | NUR ---
Patient discharged with v/s stable. Written and verbal after care instructions given and explained. Patient alert, oriented and verbalized understanding of instructions. Ambulatory with steady gait. All questions addressed prior to discharge. ID band removed. Patient advised to follow up with PMD. Rx of mag hydrox, dicyclomine, famotidine (sent) given. Patient educated on indication of medication including possible reaction and side effects. Opportunity to ask questions provided and answered.
== END 2021-09-07 17:55 | disposition home or self-care (01) ==
LOC: MED 13:52
DX: R10.9 Unspecified abdominal pain (principal); R19.7 Diarrhea, unspecified; R11.0 Nausea; E11.9 Type 2 diabetes mellitus without complications; Z79.899 Other long term (current) drug therapy; Z79.84 Long term (current) use of oral hypoglycemic drugs; Z79.82 Long term (current) use of aspirin
CPT/HCPCS: 36415; 80053; 81002; 83690; 85025; 96361; 96374; 96375; 99284; J2405; J3490; J7030

== ENCOUNTER 2022-01-06 07:48 | Emergency (ER) | payer MEDICAID ==
[~2022-01-06] VITALS: Ht 162.6 cm; Wt 82.6 kg
[~2022-01-06 07:48] MED LIST changes: +ALUM355S59 PO; +BEN10 PO; +FAMO-90 PO
[2022-01-06 08:39] VITALS: BP 137/79
--- NOTE | 2022-01-06 08:51 | NUR ---
COVID LYNDA, STREP & THROAT CULTURE SWABS DONE.
--- NOTE | 2022-01-06 09:00 | NUR ---
C/O COUGH, 7/10 SORE THROAT, FEVER X 5 DAYS. ORAL TEMP 98.5 AT THIS TIME. BLOOD SUGAR 169 AT THIS TIME. PMH: DM, HTN
[2022-01-06] MEDS ORDERED: LIDO15SO PO (12:31)
[2022-01-06] MEDS ORDERED: ACET-10509 PO (12:31)
[2022-01-06] MEDS ORDERED: IBUP-2213 PO (12:31)
--- NOTE | 2022-01-06 13:03 | NUR ---
Patient discharged with v/s stable. Written and verbal after care instructions given and explained. Patient alert, oriented and verbalized understanding of instructions. Ambulatory with steady gait. All questions addressed prior to discharge. ID band removed. Patient advised to follow up with PMD. Rx of ACETAMINOPHEN TAB, IBUPROFEN, LIDOCAINE HCI given. Opportunity to ask questions provided and answered.
--- NOTE | 2022-01-06 13:03 | NUR ---
The patient's care was reviewed and supervised by Penelope Ritter RN.
== END 2022-01-06 13:02 | disposition home or self-care (01) ==
LOC: MED 07:48
DX: B34.9 Viral infection, unspecified (principal); Z20.822 Contact with and (suspected) exposure to COVID-19; E11.9 Type 2 diabetes mellitus without complications; I10 Essential (primary) hypertension; Z79.4 Long term (current) use of insulin; Z79.899 Other long term (current) drug therapy
CPT/HCPCS: 82948; 87081; 99283

== ENCOUNTER 2022-02-19 20:17 | Emergency (ER) | payer MEDICAID ==
[~2022-02-19] VITALS: Ht 162.6 cm; Wt 72.6 kg
[~2022-02-19 20:17] MED LIST changes: +LIDO15SO PO
[2022-02-19 20:26] VITALS: BP 124/75
--- NOTE | 2022-02-19 20:30 | NUR ---
TO LOBBY FOLLOWING TRIAGE
--- NOTE | 2022-02-19 22:49 | NUR ---
PT TAKEN TO BED #[address] HICKEY
[2022-02-19] MEDS ORDERED: TETRACAINE HCL/PF 0.5% OPTH 4 ML BTL OP ONE (22:50)
--- NOTE | 2022-02-19 22:50 | NUR ---
Patient is A/Ox4, resting comfortably in bed, chest rise and fall symmetrical, no s/s of distress.
[2022-02-19] MEDS ORDERED: FLUORESCEIN OPTH STRIP 1 MG ONE (22:54)
[2022-02-19] MEDS ORDERED: FLUORESCEIN OPTH STRIP 1 MG OP ONE (22:55)
[2022-02-19] MEDS ORDERED: ERYTHROMYCIN 0.5% OPTH OINT 1 GM TUBE OP ONE (23:00)
[2022-02-20] MEDS ORDERED: OFLO5SOL RIGHT EYE
--- NOTE | 2022-02-20 00:01 | NUR ---
Patient is A/Ox4, resting comfortably in bed, chest rise and fall symmetrical, no s/s of distress.
[2022-02-20 00:05] VITALS: BP 113/85
== END 2022-02-20 00:05 | disposition home or self-care (01) ==
LOC: MED 20:17
DX: S05.01XA Injury of conjunctiva and corneal abrasion without foreign body, right eye, initial encounter (principal); E11.9 Type 2 diabetes mellitus without complications; I10 Essential (primary) hypertension; Z79.899 Other long term (current) drug therapy; Z79.82 Long term (current) use of aspirin; Z79.84 Long term (current) use of oral hypoglycemic drugs; W22.8XXA Striking against or struck by other objects, initial encounter; Y93.89 Activity, other specified; Y92.89 Other specified places as the place of occurrence of the external cause; Y99.8 Other external cause status
CPT/HCPCS: 99284

== ENCOUNTER 2022-06-10 09:41 | Emergency (ER) | payer MEDICAID ==
[~2022-06-10] VITALS: Ht 165.1 cm; Wt 77.1 kg
[~2022-06-10 09:41] MED LIST changes: +OFLO5SOL RIGHT EYE
[2022-06-10 09:45] VITALS: BP 150/87
[2022-06-10] MEDS ORDERED: DICYCLOMINE HCL LIQUID 20 MG, ALUMINUM HYD/MAG/SIMETHICONE 30 ML, LIDOCAINE VISCOUS 2% ... PO ONE ×3 (10:25)
[2022-06-10] MEDS ORDERED: ALUMINUM HYD/MAG/SIMETHICONE 30 ML UDC ONE (10:51)
[2022-06-10] MEDS ORDERED: DICYCLOMINE HCL LIQUID 10 MG/5 ML UDC ONE (10:51)
--- NOTE | 2022-06-10 10:54 | NUR ---
Called in lobby to medicate. No answer.
[2022-06-10 11:18] LABS: BASOPHILS % (AUTO) 0.4 % (0.0-2.0); EOSINOPHILS # (AUTO) 0.1 K/uL (0-0.4); EOSINOPHILS % (AUTO) 0.8 % (0.0-4.0); HEMATOCRIT 43.9 % (36-52); HEMOGLOBIN 15.1 g/dL (12.0-18.0); LYMPHOCYTES # (AUTO) 1.7 K/uL (2.0-11.5); LYMPHOCYTES % (AUTO) 20.4 % (20.5-51.1); MEAN CORPUSCULAR HEMOGLOBIN 31 pg (27-31); MEAN CORPUSCULAR HGB CONC 34 g/dL (33-37); MEAN CORPUSCULAR VOLUME 89.5 fL (80-94); MONOCYTES # (AUTO) 0.7 K/uL (0.8-1.0); MONOCYTES % (AUTO) 7.9 % (1.7-9.3); NEUTROPHILS # (AUTO) 5.9 K/uL (1.8-7.7); NEUTROPHILS % (AUTO) 70.5 % (42.2-75.2); PLATELET COUNT (AUTO) 274 K/uL (140-450); RED BLOOD CELL COUNT(AUTO) 4.91 MIL/uL (4.20-6.10); RED CELL DISTRIBUTION WIDTH 13.7 % (11.6-13.7); WHITE BLOOD COUNT (AUTO) 8.3 K/uL (4.8-10.8)
[2022-06-10 11:41] LABS: ALBUMIN 4.7 g/dL (3.4-5.0); ANION GAP 14.1 (8-16); CARBON DIOXIDE 27.2 mmol/L (21-32); CREATININE 0.8 mg/dL (0.6-1.3); POTASSIUM 4.3 mmol/L (3.5-5.1); TOTAL BILIRUBIN 0.4 mg/dL (0.0-1.0)
[2022-06-10 14:35] LABS: APPEARANCE,URINE CLEAR (CLEAR); BILIRUBIN,URINE NEGATIVE (NEGATIVE); BLOOD, URINE 1+ (NEGATIVE); COLOR,URINE YELLOW (YELLOW); LEUKOCYTE ESTERASE ,URINE NEGATIVE (NEGATIVE); NITRITE, URINE NEGATIVE (NEGATIVE); UGLUCOSE NEGATIVE (NEGATIVE)
[2022-06-10 14:51] LABS: RBC,URINE 0-5 /HPF (0-5); WBC,URINE 0 /HPF (0-5)
[2022-06-10] MEDS ORDERED: ONDA-188 SL (14:59)
[2022-06-10] MEDS ORDERED: ACET-10509 PO (14:59)
[2022-06-10 15:55] VITALS: BP 118/70
--- NOTE | 2022-06-10 15:55 | NUR ---
Patient discharged with v/s stable. Written and verbal after care instructions given and explained. Patient alert, oriented and verbalized understanding of instructions. Ambulatory with steady gait. All questions addressed prior to discharge. ID band removed. Patient advised to follow up with PMD. Patient educated on indication of medication including possible reaction and side effects. Opportunity to ask questions provided and answered.
== END 2022-06-10 15:55 | disposition home or self-care (01) ==
LOC: MED 09:41
DX: R10.13 Epigastric pain (principal); E11.9 Type 2 diabetes mellitus without complications; I10 Essential (primary) hypertension; E78.00 Pure hypercholesterolemia, unspecified; F41.9 Anxiety disorder, unspecified; Z79.899 Other long term (current) drug therapy; Z79.1 Long term (current) use of non-steroidal anti-inflammatories (NSAID); Z79.2 Long term (current) use of antibiotics; Z79.82 Long term (current) use of aspirin
CPT/HCPCS: 36415; 80053; 81001; 83690; 85025; 99283

== ENCOUNTER 2022-11-13 12:22 | Emergency (ER) | payer MEDICAID ==
[~2022-11-13] VITALS: Ht 167.6 cm; Wt 74.4 kg
[~2022-11-13 12:22] MED LIST changes: -LIDO15SO PO; +LIDO15SO4 PO; +ONDA-188 SL
[2022-11-13 12:29] VITALS: BP 111/77; PULSE 88; RESP 16; TEMP 97.9; O2SAT 100
[2022-11-13] MEDS ORDERED: HYDR-2734 TP (13:03)
[2022-11-13] MEDS ORDERED: DOCU-299 PO (13:03)
[2022-11-13] MEDS ORDERED: PHEN28OI6 TP (13:03)
[2022-11-13 13:15] VITALS: BP 111/77; PULSE 88; RESP 16; TEMP 97.9
== END 2022-11-13 13:15 | disposition home or self-care (01) ==
LOC: MED 12:22
DX: L29.0 Pruritus ani (principal); E11.9 Type 2 diabetes mellitus without complications; I10 Essential (primary) hypertension; E78.5 Hyperlipidemia, unspecified; Z79.899 Other long term (current) drug therapy; Z79.84 Long term (current) use of oral hypoglycemic drugs
CPT/HCPCS: 82948; 99283

== ENCOUNTER 2023-07-10 21:43 | Emergency (ER) | payer MEDICAID, OTHER ==
[~2023-07-10] VITALS: Ht 172.7 cm; Wt 68.0 kg
[~2023-07-10 21:43] MED LIST changes: +COROTSOL RIGHT EAR; +DOCU-299 PO; +HYDR-2734 TP; +PHEN28OI6 TP; +SUCR1TAB35 PO
[2023-07-10 21:45] VITALS: BP 207/110; PULSE 105; RESP 18; TEMP 98; O2SAT 98
[2023-07-10 22:20] LABS: BASOPHILS % (AUTO) 0.3 % (0.0-2.0); EOSINOPHILS % (AUTO) 0.1 % (0.0-4.0); HEMATOCRIT 45.6 % (36-52); HEMOGLOBIN 15.9 g/dL (12.0-18.0); LYMPHOCYTES # (AUTO) 0.9 K/uL (2.0-11.5); LYMPHOCYTES % (AUTO) 8.8 % (20.5-51.1); MEAN CORPUSCULAR HEMOGLOBIN 33 pg (27-31); MEAN CORPUSCULAR HGB CONC 35 g/dL (33-37); MEAN CORPUSCULAR VOLUME 93.4 fL (80-94); MONOCYTES % (AUTO) 9.2 % (1.7-9.3); NEUTROPHILS # (AUTO) 8.6 K/uL (1.8-7.7); NEUTROPHILS % (AUTO) 81.6 % (42.2-75.2); PLATELET COUNT (AUTO) 294 K/uL (140-450); RED BLOOD CELL COUNT(AUTO) 4.89 MIL/uL (4.20-6.10); RED CELL DISTRIBUTION WIDTH 13.5 % (11.6-13.7); WHITE BLOOD COUNT (AUTO) 10.5 K/uL (4.8-10.8)
[2023-07-10 22:37] LABS: ANION GAP 12.4 (8-16); CALCIUM 9.5 mg/dL (8.5-10.1); CARBON DIOXIDE 29.4 mmol/L (21-32); CREATININE 0.9 mg/dL (0.6-1.3); INR 0.97 (0.8-1.2); PARTIAL THROMBOPLASTIN TIME 23.5 secs (22-35.6); POTASSIUM 4.8 mmol/L (3.5-5.1); PROTHROMBIN TIME 10.2 secs (10.8-13.4)
[2023-07-10] MEDS: LORazepam 2 MG/ML VIAL IVP ONE (22:54)
[2023-07-10] MEDS ORDERED: MULTIVITAMIN 1 TAB ONE (23:05)
[2023-07-10] MEDS: INSULIN REGULAR, HUMAN 100 UNIT/ML VIAL IVP ONE (23:12)
[2023-07-10] MEDS: NACL 0.9% 1,000 ML IV ONE (23:13)
[2023-07-11 01:25] VITALS: BP 150/82; PULSE 85; RESP 18; TEMP 98; O2SAT 98
[2023-07-11] MEDS: KETOROLAC 30 MG/ML VIAL IVP ONE (01:25)
== END 2023-07-11 01:25 | disposition home or self-care (01) ==
LOC: MED 21:43
DX: R07.9 Chest pain, unspecified (principal); R00.0 Tachycardia, unspecified; F15.129 Other stimulant abuse with intoxication, unspecified; E11.9 Type 2 diabetes mellitus without complications; I10 Essential (primary) hypertension; E78.5 Hyperlipidemia, unspecified; Z79.899 Other long term (current) drug therapy; Z79.82 Long term (current) use of aspirin
CPT/HCPCS: 36415; 71045; 80048; 82948; 83880; 84484; 85025; 85610; 85730; 93005; 96361; 96374; 96375; 99285; J1815; J2060; J7030; 90715

== ENCOUNTER 2023-07-22 21:38 | Emergency (ER) | payer OTHER ==
[~2023-07-22] VITALS: Ht 172.7 cm; Wt 70.8 kg
[~2023-07-22 21:38] MED LIST changes: +LIDO15SO10 PO; -LIDO15SO4 PO; +NAPR-337 PO; -NAPR-54 PO; +SUCR-34 PO; -SUCR1TAB35 PO
[2023-07-22 21:58] VITALS: BP 148/99; PULSE 135; RESP 16; TEMP 98.6; O2SAT 99
[2023-07-22 22:39] LABS: BASOPHILS % (AUTO) 0.2 % (0.0-2.0); EOSINOPHILS % (AUTO) 0.2 % (0.0-4.0); HEMATOCRIT 44.1 % (36-52); HEMOGLOBIN 15.3 g/dL (12.0-18.0); LYMPHOCYTES # (AUTO) 1.1 K/uL (2.0-11.5); LYMPHOCYTES % (AUTO) 10.8 % (20.5-51.1); MEAN CORPUSCULAR HEMOGLOBIN 32 pg (27-31); MEAN CORPUSCULAR HGB CONC 35 g/dL (33-37); MEAN CORPUSCULAR VOLUME 93.6 fL (80-94); MONOCYTES # (AUTO) 0.7 K/uL (0.8-1.0); MONOCYTES % (AUTO) 6.6 % (1.7-9.3); NEUTROPHILS # (AUTO) 8.1 K/uL (1.8-7.7); NEUTROPHILS % (AUTO) 82.2 % (42.2-75.2); PLATELET COUNT (AUTO) 273 K/uL (140-450); RED BLOOD CELL COUNT(AUTO) 4.71 MIL/uL (4.20-6.10); RED CELL DISTRIBUTION WIDTH 13.4 % (11.6-13.7); WHITE BLOOD COUNT (AUTO) 9.8 K/uL (4.8-10.8)
[2023-07-22 22:59] LABS: INR 0.94 (0.8-1.2); PARTIAL THROMBOPLASTIN TIME 24.8 secs (22-35.6); PROTHROMBIN TIME 9.9 secs (10.8-13.4)
[2023-07-22 23:01] LABS: CALCIUM 8.5 mg/dL (8.5-10.1); CARBON DIOXIDE 23.8 mmol/L (21-32); CREATININE 1.5 mg/dL (0.6-1.3); POTASSIUM 3.8 mmol/L (3.5-5.1)
[2023-07-22 23:04] LABS: ALANINE AMINOTRANSFERASE 21 U/L (12-78); ALBUMIN 3.9 g/dL (3.4-5.0); ALKALINE PHOSPHATASE 129 U/L (50-136); ASPARTATE AMINOTRANSFERASE 16 U/L (15-37); BILIRUBIN,DIRECT 0.1 mg/dL (0.0-0.3); TOTAL BILIRUBIN 0.3 mg/dL (0.0-1.0); TOTAL PROTEIN, SERUM 7.3 g/dL (6.4-8.2)
[2023-07-22] MEDS: ONDANSETRON 4 MG/2 ML VIAL IVP ONE (23:53)
[2023-07-22] MEDS: NACL 0.9% 1,000 ML IV ONE (23:54)
[2023-07-22] MEDS: INSULIN REGULAR, HUMAN 100 UNIT/ML VIAL SUBQ ONE (23:58)
[2023-07-23] MEDS: LORazepam 2 MG/ML VIAL IVP ONE (00:11)
[2023-07-23 00:12] VITALS: PULSE 130; RESP 32; O2SAT 98
[2023-07-23] MEDS: ALBUTEROL 0.083% 2.5 MG/3 ML NEBU INH ONE (00:25)
[2023-07-23] MEDS: NACL 0.9% 1,000 ML IV ONE (01:27)
[2023-07-23 02:32] LABS: APPEARANCE,URINE CLEAR (CLEAR); BILIRUBIN,URINE NEGATIVE (NEGATIVE); BLOOD, URINE TRACE-I (NEGATIVE); COLOR,URINE YELLOW (YELLOW); LEUKOCYTE ESTERASE ,URINE NEGATIVE (NEGATIVE); NITRITE, URINE NEGATIVE (NEGATIVE); PROTEIN,URINE NEGATIVE (NEGATIVE); UGLUCOSE 3+ (NEGATIVE); UROBILINOGEN,URINE 0.2 EU/dL (0.2 - 1)
[2023-07-23] MEDS ORDERED: ONDA-188 SL (02:49)
[2023-07-23] MEDS ORDERED: HYDR25CA1 PO (02:49)
[2023-07-23 02:56] LABS: AMPHETAMINE, URINE POSITIVE ng/ml (NEG <=1000); BARBITURATE, URINE NEGATIVE ng/ml (NEG <=200); BENZODIAZEPINE, URINE NEGATIVE ng/mL (NEG <=200); CANNABINOID, URINE NEGATIVE ng/mL (NEG <=50); COCAINE, URINE NEGATIVE ng/mL (NEG <=300); OPIATE, URINE NEGATIVE ng/mL (NEG <=2000); PHENCYCLIDINE SCREEN,URINE NEGATIVE ng/mL (NEG <=25)
[2023-07-23 03:06] VITALS: BP 148/99; PULSE 130; RESP 32; TEMP 98.6; O2SAT 98
== END 2023-07-23 03:06 | disposition home or self-care (01) ==
LOC: MED 21:38
DX: R07.89 Other chest pain (principal); F15.10 Other stimulant abuse, uncomplicated; E11.9 Type 2 diabetes mellitus without complications; I10 Essential (primary) hypertension; Z79.84 Long term (current) use of oral hypoglycemic drugs; Z79.1 Long term (current) use of non-steroidal anti-inflammatories (NSAID); Z79.899 Other long term (current) drug therapy; Z79.82 Long term (current) use of aspirin
CPT/HCPCS: 36415; 71045; 80048; 80076; 80305; 81003; 82948; 83880; 84484; 85025; 85610; 85730; 93005; 94640; 96361; 96372; 96374; 96375; 99285; G0482; J1815; J2060; J2405; J7030; J7613

== ENCOUNTER 2023-07-23 06:53 | Emergency (ER) | payer OTHER ==
[~2023-07-23] VITALS: Ht 172.7 cm; Wt 70.8 kg
[~2023-07-23 06:53] MED LIST changes: +HYDR25CA1 PO
[2023-07-23 07:00] VITALS: BP 153/92; PULSE 120; RESP 24; TEMP 98.2; O2SAT 100
[2023-07-23 07:27] LABS: BASOPHILS % (AUTO) 0.2 % (0.0-2.0); EOSINOPHILS % (AUTO) 0.4 % (0.0-4.0); HEMATOCRIT 42.2 % (36-52); HEMOGLOBIN 14.8 g/dL (12.0-18.0); LYMPHOCYTES # (AUTO) 1.6 K/uL (2.0-11.5); LYMPHOCYTES % (AUTO) 19.5 % (20.5-51.1); MEAN CORPUSCULAR HEMOGLOBIN 32 pg (27-31); MEAN CORPUSCULAR HGB CONC 35 g/dL (33-37); MEAN CORPUSCULAR VOLUME 92.8 fL (80-94); MONOCYTES # (AUTO) 0.8 K/uL (0.8-1.0); MONOCYTES % (AUTO) 9.5 % (1.7-9.3); NEUTROPHILS # (AUTO) 5.7 K/uL (1.8-7.7); NEUTROPHILS % (AUTO) 70.4 % (42.2-75.2); PLATELET COUNT (AUTO) 269 K/uL (140-450); RED BLOOD CELL COUNT(AUTO) 4.55 MIL/uL (4.20-6.10); RED CELL DISTRIBUTION WIDTH 13.3 % (11.6-13.7); WHITE BLOOD COUNT (AUTO) 8.1 K/uL (4.8-10.8)
[2023-07-23] MEDS: NACL 0.9% 1,000 ML IV ONE (07:37)
[2023-07-23 07:45] LABS: ALANINE AMINOTRANSFERASE 16 U/L (12-78); ALBUMIN 3.7 g/dL (3.4-5.0); ALKALINE PHOSPHATASE 99 U/L (50-136); ANION GAP 15.2 (8-16); ASPARTATE AMINOTRANSFERASE 18 U/L (15-37); CALCIUM 8.3 mg/dL (8.5-10.1); CARBON DIOXIDE 25.1 mmol/L (21-32); CHLORIDE 98 mmol/L (98-107); CREATINE KINASE, TOTAL 165 U/L (39-308); CREATININE 0.7 mg/dL (0.6-1.3); GFR ARICAN-AMERICAN 155 mL/min (>90); GFR NON ARICAN-AMERICAN 128 mL/min (>90); GLUCOSE 141 mg/dL (74-106); POTASSIUM 3.3 mmol/L (3.5-5.1); SODIUM SERUM 135 mmol/L (136-145); TOTAL BILIRUBIN 0.4 mg/dL (0.0-1.0); TOTAL PROTEIN, SERUM 6.9 g/dL (6.4-8.2); UREA NITROGEN, BLOOD 11 mg/dL (7-18)
[2023-07-23] MEDS: DIAZEPAM PFS 10 MG/2 ML SYR IVP ONE (08:48)
[2023-07-23 09:04] LABS: ALCOHOL, BLOOD < 3 mg/dL (<10)
[2023-07-23 10:41] VITALS: BP 135/85; PULSE 68; RESP 26; TEMP 98; O2SAT 98
== END 2023-07-23 10:35 | disposition home or self-care (01) ==
LOC: MED 06:53
DX: R07.9 Chest pain, unspecified (principal); R06.02 Shortness of breath; E11.9 Type 2 diabetes mellitus without complications; I10 Essential (primary) hypertension; Z79.4 Long term (current) use of insulin; Z79.899 Other long term (current) drug therapy
CPT/HCPCS: 36415; 71045; 71275; 80053; 82550; 84484; 85025; 93005; 96361; 96374; 99291; G0482; J3360; Q0092; Q9967

== ENCOUNTER 2023-07-25 17:47 | Emergency (ER) | payer OTHER ==
[~2023-07-25] VITALS: Ht 182.9 cm; Wt 64.4 kg
[2023-07-25 17:54] VITALS: BP 112/67; PULSE 90; RESP 15; TEMP 97.6; O2SAT 98
[2023-07-25 19:07] LABS: BASOPHILS % (AUTO) 0.4 % (0.0-2.0); EOSINOPHILS # (AUTO) 0.1 K/uL (0-0.4); EOSINOPHILS % (AUTO) 1.6 % (0.0-4.0); HEMATOCRIT 42.8 % (36-52); LYMPHOCYTES # (AUTO) 1.9 K/uL (2.0-11.5); LYMPHOCYTES % (AUTO) 25.1 % (20.5-51.1); MEAN CORPUSCULAR HEMOGLOBIN 33 pg (27-31); MEAN CORPUSCULAR HGB CONC 35 g/dL (33-37); MEAN CORPUSCULAR VOLUME 93.3 fL (80-94); MONOCYTES # (AUTO) 0.7 K/uL (0.8-1.0); MONOCYTES % (AUTO) 9.3 % (1.7-9.3); NEUTROPHILS # (AUTO) 4.8 K/uL (1.8-7.7); NEUTROPHILS % (AUTO) 63.6 % (42.2-75.2); PLATELET COUNT (AUTO) 301 K/uL (140-450); RED BLOOD CELL COUNT(AUTO) 4.58 MIL/uL (4.20-6.10); RED CELL DISTRIBUTION WIDTH 13.4 % (11.6-13.7); WHITE BLOOD COUNT (AUTO) 7.6 K/uL (4.8-10.8)
[2023-07-25 19:20] VITALS: O2SAT 98
[2023-07-25 19:20] LABS: ANION GAP 11.6 (8-16); CALCIUM 8.4 mg/dL (8.5-10.1); CARBON DIOXIDE 26.1 mmol/L (21-32); CREATININE 0.6 mg/dL (0.6-1.3); POTASSIUM 3.7 mmol/L (3.5-5.1)
[2023-07-25 19:46] VITALS: BP 109/77; PULSE 80; RESP 17; TEMP 98.1; O2SAT 98
== END 2023-07-25 20:10 | disposition home or self-care (01) ==
LOC: MED 17:47
DX: R07.9 Chest pain, unspecified (principal); R06.02 Shortness of breath; I10 Essential (primary) hypertension; E11.9 Type 2 diabetes mellitus without complications; Z79.4 Long term (current) use of insulin; Z79.899 Other long term (current) drug therapy
CPT/HCPCS: 36415; 71045; 80048; 83880; 84484; 85025; 93005; 99285; Q0092

== ENCOUNTER 2023-08-03 21:42 | Emergency (ER) | payer OTHER ==
[~2023-08-03] VITALS: Ht 165.1 cm; Wt 65.3 kg
[2023-08-03 21:50] VITALS: BP 112/80; PULSE 95; RESP 18; TEMP 97.3; O2SAT 97
[2023-08-03 21:59] VITALS: BP 112/80; PULSE 92; RESP 20; TEMP 97.3; O2SAT 97
[2023-08-03 23:13] LABS: BASOPHILS % (AUTO) 0.4 % (0.0-2.0); EOSINOPHILS % (AUTO) 0.5 % (0.0-4.0); HEMATOCRIT 39.5 % (36-52); LYMPHOCYTES # (AUTO) 1.4 K/uL (2.0-11.5); LYMPHOCYTES % (AUTO) 15.1 % (20.5-51.1); MEAN CORPUSCULAR HEMOGLOBIN 33 pg (27-31); MEAN CORPUSCULAR HGB CONC 35 g/dL (33-37); MEAN CORPUSCULAR VOLUME 93.1 fL (80-94); MONOCYTES # (AUTO) 0.7 K/uL (0.8-1.0); MONOCYTES % (AUTO) 7.4 % (1.7-9.3); NEUTROPHILS # (AUTO) 7.4 K/uL (1.8-7.7); NEUTROPHILS % (AUTO) 76.6 % (42.2-75.2); PLATELET COUNT (AUTO) 278 K/uL (140-450); RED BLOOD CELL COUNT(AUTO) 4.24 MIL/uL (4.20-6.10); RED CELL DISTRIBUTION WIDTH 13.1 % (11.6-13.7); WHITE BLOOD COUNT (AUTO) 9.6 K/uL (4.8-10.8)
[2023-08-03 23:36] LABS: ALBUMIN 3.2 g/dL (3.4-5.0); ALKALINE PHOSPHATASE 104 U/L (50-136); ANION GAP 11.7 (8-16); ASPARTATE AMINOTRANSFERASE 17 U/L (15-37); BILIRUBIN,DIRECT 0.1 mg/dL (0.0-0.3); CALCIUM 8.4 mg/dL (8.5-10.1); CARBON DIOXIDE 29.1 mmol/L (21-32); CREATININE 0.9 mg/dL (0.6-1.3); POTASSIUM 3.8 mmol/L (3.5-5.1); TOTAL BILIRUBIN 0.5 mg/dL (0.0-1.0); TOTAL PROTEIN, SERUM 6.2 g/dL (6.4-8.2)
[2023-08-04 00:03] LABS: ALANINE AMINOTRANSFERASE 23 U/L (12-78)
== END 2023-08-04 00:13 | disposition home or self-care (01) ==
LOC: MED 21:42
DX: R42 Dizziness and giddiness (principal); F15.129 Other stimulant abuse with intoxication, unspecified; E11.65 Type 2 diabetes mellitus with hyperglycemia; I10 Essential (primary) hypertension; E78.00 Pure hypercholesterolemia, unspecified; Z79.899 Other long term (current) drug therapy; Z79.82 Long term (current) use of aspirin
CPT/HCPCS: 36415; 71045; 80048; 80076; 82948; 83880; 84484; 85025; 85379; 93005; 99285

== ENCOUNTER 2023-10-01 03:56 | Emergency (ER) | payer OTHER ==
[~2023-10-01 03:56] MED LIST changes: -LISI-487 PO; +LISI-953 PO; +SUCR-3 PO; -SUCR-34 PO
== END 2023-10-01 04:00 | disposition left against medical advice (07) ==
LOC: MED 03:56
DX: R06.02 Shortness of breath (principal); Z53.21 Procedure and treatment not carried out due to patient leaving prior to being seen by health care provider

== ENCOUNTER 2023-10-08 04:58 | Emergency (ER) | payer OTHER | END 2023-10-08 05:05 | disposition left against medical advice (07) | LOC: MED 04:58 | DX: R10.9 Unspecified abdominal pain (principal); Z53.21 Procedure and treatment not carried out due to patient leaving prior to being seen by health care provider ==

== ENCOUNTER 2023-11-06 16:01 | Emergency (ER) | payer OTHER ==
[~2023-11-06] VITALS: Ht 165.1 cm; Wt 67.1 kg
[2023-11-06 16:28] VITALS: BP 107/74; PULSE 93; RESP 19; TEMP 98.7; O2SAT 98
[2023-11-06 18:28] LABS: APPEARANCE,URINE CLEAR (CLEAR); BILIRUBIN,URINE NEGATIVE (NEGATIVE); BLOOD, URINE 1+ (NEGATIVE); COLOR,URINE YELLOW (YELLOW); LEUKOCYTE ESTERASE ,URINE NEGATIVE (NEGATIVE); NITRITE, URINE NEGATIVE (NEGATIVE); PROTEIN,URINE 2+ (NEGATIVE); UGLUCOSE TRACE (NEGATIVE); UROBILINOGEN,URINE 0.2 EU/dL (0.2 - 1)
[2023-11-06 18:30] LABS: BASOPHILS % (AUTO) 0.1 % (0.0-2.0); EOSINOPHILS % (AUTO) 0.4 % (0.0-4.0); HEMATOCRIT 51.5 % (36-52); HEMOGLOBIN 17.2 g/dL (12.0-18.0); LYMPHOCYTES # (AUTO) 0.6 K/uL (2.0-11.5); LYMPHOCYTES % (AUTO) 5.8 % (20.5-51.1); MEAN CORPUSCULAR HEMOGLOBIN 32 pg (27-31); MEAN CORPUSCULAR HGB CONC 33 g/dL (33-37); MEAN CORPUSCULAR VOLUME 95.3 fL (80-94); MONOCYTES # (AUTO) 0.8 K/uL (0.8-1.0); NEUTROPHILS # (AUTO) 8.4 K/uL (1.8-7.7); NEUTROPHILS % (AUTO) 85.7 % (42.2-75.2); PLATELET COUNT (AUTO) 234 K/uL (140-450); RED BLOOD CELL COUNT(AUTO) 5.41 MIL/uL (4.20-6.10); RED CELL DISTRIBUTION WIDTH 14.7 % (11.6-13.7); WHITE BLOOD COUNT (AUTO) 9.8 K/uL (4.8-10.8)
[2023-11-06 18:39] LABS: BACTERIA,URINE FEW /HPF (None Seen); RBC,URINE 0-5 /HPF (0-5); SQUAMOUS EPITHELIAL CELL,UR 0-3 (FEW) /LPF (0-3 (FEW))
[2023-11-06 18:43] LABS: ANION GAP 15.8 (8-16); CARBON DIOXIDE 20.4 mmol/L (21-32); CREATININE 1.1 mg/dL (0.6-1.3); POTASSIUM 4.2 mmol/L (3.5-5.1)
[2023-11-06 18:55] LABS: ALBUMIN 3.1 g/dL (3.4-5.0); BILIRUBIN,DIRECT 0.1 mg/dL (0.0-0.3); TOTAL BILIRUBIN 0.2 mg/dL (0.0-1.0); TOTAL PROTEIN, SERUM 6.9 g/dL (6.4-8.2)
[2023-11-06] MEDS: LOPERAMIDE 2 MG CAP PO ONE (19:08)
[2023-11-06] MEDS: DICYCLOMINE HCL LIQUID 10 MG/5 ML UDC PO ONE (19:08)
[2023-11-06] MEDS: IBUPROFEN 600 MG TAB PO ONE (19:08)
[2023-11-06 19:09] LABS: FLU A ANTIGEN negative (NEGATIVE); FLU B ANTIGEN NEGATIVE (NEGATIVE)
== END 2023-11-06 21:22 | disposition left against medical advice (07) ==
LOC: MED 16:01
DX: U07.1 COVID-19 (principal); E11.9 Type 2 diabetes mellitus without complications; I10 Essential (primary) hypertension; E78.5 Hyperlipidemia, unspecified; Z79.899 Other long term (current) drug therapy; Z79.82 Long term (current) use of aspirin
CPT/HCPCS: 36415; 71045; 80048; 80076; 81001; 83690; 85025; 87081; 87086; 99284

== ENCOUNTER 2023-11-21 06:05 | Emergency (ER) | payer OTHER ==
[~2023-11-21] VITALS: Ht 157.5 cm; Wt 69.9 kg
[~2023-11-21 06:05] MED LIST changes: -ACET-10509 PO; +ACET500T99 PO; -GLIP10TE PO; +GLIP10TE1 PO
[2023-11-21 06:16] VITALS: BP 133/88; PULSE 80; RESP 14; TEMP 98.6; O2SAT 99
[2023-11-21] MEDS: NACL 0.9% 1,000 ML IV ONE (06:53)
[2023-11-21] MEDS: ONDANSETRON 4 MG/2 ML VIAL IVP ONE (07:02)
[2023-11-21] MEDS: KETOROLAC 30 MG/ML VIAL IVP ONE (07:03)
[2023-11-21 07:26] LABS: FLU A ANTIGEN negative (NEGATIVE); FLU B ANTIGEN negative (NEGATIVE)
[2023-11-21] MEDS ORDERED: IBUP-2218 PO (08:00)
[2023-11-21] MEDS ORDERED: ONDA-188 SL (08:00)
[2023-11-21 09:32] VITALS: BP 131/83; PULSE 77; RESP 20; O2SAT 98
[2023-11-21] MEDS: ACETAMINOPHEN EXTRA STRENGTH 500 MG TAB PO ONE (09:35)
[2023-11-22] MEDS ORDERED: TRAM-748 PO (08:01)
[2023-11-22] MEDS ORDERED: LOPE-143 PO (08:01)
== END 2023-11-21 09:45 | disposition home or self-care (01) ==
LOC: MED 06:05
DX: A08.4 Viral intestinal infection, unspecified (principal); R51.9 Headache, unspecified; Z20.822 Contact with and (suspected) exposure to COVID-19; E11.9 Type 2 diabetes mellitus without complications; I10 Essential (primary) hypertension; Z79.899 Other long term (current) drug therapy; Z79.82 Long term (current) use of aspirin
CPT/HCPCS: 87081; 87426; 87804; 96361; 96374; 96375; 99284; J1885; J2405; J7030

== ENCOUNTER 2023-11-22 07:18 | Emergency (ER) | payer OTHER ==
[~2023-11-22] VITALS: Ht 160 cm; Wt 69.6 kg
[~2023-11-22 07:18] MED LIST changes: +IBUP-2218 PO
[2023-11-22 07:28] VITALS: BP 139/93; PULSE 78; RESP 18; TEMP 97.4; O2SAT 99
[2023-11-22] MEDS ORDERED: TRAM-748 PO (08:01)
[2023-11-22] MEDS ORDERED: LOPE-143 PO (08:01)
[2023-11-22] MEDS: ONDANSETRON 4 MG ODT PO ONE (08:05)
[2023-11-22] MEDS: KETOROLAC 60 MG/2 ML VIAL IM ONE (08:06)
== END 2023-11-22 08:40 | disposition home or self-care (01) ==
LOC: MED 07:18
DX: B34.9 Viral infection, unspecified (principal); F19.90 Other psychoactive substance use, unspecified, uncomplicated; F17.200 Nicotine dependence, unspecified, uncomplicated; E11.9 Type 2 diabetes mellitus without complications; I10 Essential (primary) hypertension; Z79.84 Long term (current) use of oral hypoglycemic drugs; Z79.82 Long term (current) use of aspirin; Z79.1 Long term (current) use of non-steroidal anti-inflammatories (NSAID); Z79.899 Other long term (current) drug therapy
CPT/HCPCS: 87081; 96372; 99283; J1885; Q0162

== ENCOUNTER 2023-12-11 04:40 | Emergency (ER) | payer OTHER ==
[~2023-12-11] VITALS: Ht 170.2 cm; Wt 67.1 kg
[~2023-12-11 04:40] MED LIST changes: +LOPE-143 PO; +TRAM-748 PO
[2023-12-11 04:58] VITALS: BP 137/87; PULSE 87; RESP 18; TEMP 98; O2SAT 98
[2023-12-11 05:08] VITALS: O2SAT 99
[2023-12-11] MEDS: ONDANSETRON 4 MG ODT PO ONE (06:34)
[2023-12-11] MEDS: KETOROLAC 30 MG/ML VIAL IM ONE (06:35)
[2023-12-11] MEDS ORDERED: IBUP-2213 PO (07:34)
[2023-12-11] MEDS ORDERED: ACET500T99 PO (07:34)
[2023-12-11] MEDS: ACETAMINOPHEN EXTRA STRENGTH 500 MG TAB PO ONE (08:00)
[2023-12-11 08:30] VITALS: BP 130/70; PULSE 88; RESP 20; O2SAT 99
[2023-12-12] MEDS ORDERED: NAPR-337 PO (05:54)
[2023-12-12] MEDS ORDERED: ONDA-188 PO (05:55)
== END 2023-12-11 08:30 | disposition home or self-care (01) ==
LOC: MED 04:40
DX: B34.9 Viral infection, unspecified (principal); E11.9 Type 2 diabetes mellitus without complications; I10 Essential (primary) hypertension; Z79.84 Long term (current) use of oral hypoglycemic drugs; Z79.899 Other long term (current) drug therapy
CPT/HCPCS: 82948; 96372; 99283; J1885; Q0162

== ENCOUNTER 2023-12-11 22:26 | Emergency (ER) | payer OTHER ==
[~2023-12-11] VITALS: Ht 170.2 cm; Wt 68.0 kg
[2023-12-11 23:00] VITALS: BP 128/84; PULSE 82; RESP 20; TEMP 98.1; O2SAT 99
[2023-12-12 04:07] VITALS: O2SAT 99
[2023-12-12] MEDS: NACL 0.9% 1,000 ML IV ONE (04:14)
[2023-12-12] MEDS: KETOROLAC 30 MG/ML VIAL IVP ONE (04:25)
[2023-12-12 04:27] LABS: BASOPHILS % (AUTO) 0.4 % (0.0-2.0); EOSINOPHILS # (AUTO) 0.2 K/uL (0-0.4); HEMATOCRIT 38.1 % (36-52); LYMPHOCYTES # (AUTO) 1.1 K/uL (2.0-11.5); LYMPHOCYTES % (AUTO) 14.4 % (20.5-51.1); MEAN CORPUSCULAR HEMOGLOBIN 32 pg (27-31); MEAN CORPUSCULAR HGB CONC 34 g/dL (33-37); MEAN CORPUSCULAR VOLUME 94.3 fL (80-94); MONOCYTES # (AUTO) 0.7 K/uL (0.8-1.0); MONOCYTES % (AUTO) 8.7 % (1.7-9.3); NEUTROPHILS # (AUTO) 5.9 K/uL (1.8-7.7); NEUTROPHILS % (AUTO) 74.5 % (42.2-75.2); PLATELET COUNT (AUTO) 286 K/uL (140-450); RED BLOOD CELL COUNT(AUTO) 4.04 MIL/uL (4.20-6.10); RED CELL DISTRIBUTION WIDTH 14.4 % (11.6-13.7); WHITE BLOOD COUNT (AUTO) 7.9 K/uL (4.8-10.8)
[2023-12-12 04:41] LABS: ANION GAP 9.9 (8-16); CALCIUM 8.3 mg/dL (8.5-10.1); CARBON DIOXIDE 29.2 mmol/L (21-32); CREATININE 1.2 mg/dL (0.6-1.3); POTASSIUM 4.1 mmol/L (3.5-5.1)
[2023-12-12 04:54] LABS: ALANINE AMINOTRANSFERASE 14 U/L (12-78); ALBUMIN 3.6 g/dL (3.4-5.0); ALKALINE PHOSPHATASE 94 U/L (50-136); ASPARTATE AMINOTRANSFERASE 14 U/L (15-37); BILIRUBIN,DIRECT 0.1 mg/dL (0.0-0.3); TOTAL BILIRUBIN 0.6 mg/dL (0.0-1.0); TOTAL PROTEIN, SERUM 6.9 g/dL (6.4-8.2)
[2023-12-12] MEDS ORDERED: NAPR-337 PO (05:54)
[2023-12-12] MEDS ORDERED: ONDA-188 PO (05:55)
[2023-12-12 06:09] VITALS: BP 128/84; PULSE 82; RESP 20; TEMP 98.1; O2SAT 99
== END 2023-12-12 06:09 | disposition home or self-care (01) ==
LOC: MED 22:26
DX: B34.9 Viral infection, unspecified (principal); E11.9 Type 2 diabetes mellitus without complications; I10 Essential (primary) hypertension; E78.5 Hyperlipidemia, unspecified; Z79.899 Other long term (current) drug therapy; Z79.82 Long term (current) use of aspirin
CPT/HCPCS: 36415; 80048; 80076; 83880; 84484; 85025; 96361; 96374; 99283; J1885; J7030

== ENCOUNTER 2024-01-01 02:00 | Emergency (ER) | payer OTHER ==
[~2024-01-01] VITALS: Ht 167.6 cm; Wt 68.9 kg
[~2024-01-01 02:00] MED LIST changes: +ONDA-188 PO
[2024-01-01 02:15] VITALS: BP 111/69; PULSE 99; RESP 16; TEMP 98.3; O2SAT 98
[2024-01-01] MEDS: ACETAMINOPHEN EXTRA STRENGTH 500 MG TAB PO ONE (04:39)
[2024-01-01] MEDS: METOCLOPRAMIDE 10 MG/2 ML INJ VIAL IVP ONE (04:43)
[2024-01-01 04:51] LABS: BASOPHILS % (AUTO) 0.4 % (0.0-2.0); EOSINOPHILS # (AUTO) 0.1 K/uL (0-0.4); EOSINOPHILS % (AUTO) 0.7 % (0.0-4.0); HEMATOCRIT 37.8 % (36-52); HEMOGLOBIN 12.8 g/dL (12.0-18.0); LYMPHOCYTES # (AUTO) 1.2 K/uL (2.0-11.5); MEAN CORPUSCULAR HEMOGLOBIN 33 pg (27-31); MEAN CORPUSCULAR HGB CONC 34 g/dL (33-37); MEAN CORPUSCULAR VOLUME 96.1 fL (80-94); MONOCYTES # (AUTO) 0.6 K/uL (0.8-1.0); MONOCYTES % (AUTO) 6.9 % (1.7-9.3); NEUTROPHILS # (AUTO) 6.4 K/uL (1.8-7.7); PLATELET COUNT (AUTO) 278 K/uL (140-450); RED BLOOD CELL COUNT(AUTO) 3.94 MIL/uL (4.20-6.10); RED CELL DISTRIBUTION WIDTH 13.9 % (11.6-13.7); WHITE BLOOD COUNT (AUTO) 8.3 K/uL (4.8-10.8)
[2024-01-01 05:06] LABS: ALBUMIN 3.7 g/dL (3.4-5.0); ANION GAP 12.7 (8-16); CALCIUM 8.5 mg/dL (8.5-10.1); CARBON DIOXIDE 25.7 mmol/L (21-32); CREATININE 0.9 mg/dL (0.6-1.3); POTASSIUM 4.4 mmol/L (3.5-5.1); TOTAL BILIRUBIN 0.3 mg/dL (0.0-1.0); TOTAL PROTEIN, SERUM 6.8 g/dL (6.4-8.2)
[2024-01-01] MEDS: KETOROLAC 30 MG/ML VIAL IVP ONE (05:51)
[2024-01-01 05:55] VITALS: BP 117/68; PULSE 86; RESP 16; O2SAT 99
[2024-01-01] MEDS: MAG SULF 2000 MG/WATER PREMIX 50 ML IV ONE (06:13)
[2024-01-01] MEDS: SUMAtriptan succinate 50 MG TAB PO ONE (06:39)
== END 2024-01-01 07:05 | disposition home or self-care (01) ==
LOC: MED 02:00
DX: G43.109 Migraine with aura, not intractable, without status migrainosus (principal); E11.9 Type 2 diabetes mellitus without complications; I10 Essential (primary) hypertension; E78.5 Hyperlipidemia, unspecified; Z79.899 Other long term (current) drug therapy; Z79.82 Long term (current) use of aspirin
CPT/HCPCS: 36415; 70450; 70496; 70498; 80053; 85025; 96365; 96375; 99285; J1885; J2765; J3475; Q9967

== ENCOUNTER 2024-01-14 16:17 | Emergency (ER) | payer OTHER ==
[~2024-01-14] VITALS: Ht 170.2 cm; Wt 90.7 kg
[2024-01-14 16:20] VITALS: BP 138/82; PULSE 92; RESP 16; TEMP 97.5; O2SAT 98
[2024-01-14] MEDS ORDERED: diphenhydrAMINE 50 MG/ML VIAL ONE (16:50)
[2024-01-14] MEDS: NACL 0.9% 1,000 ML IV ONE (16:59)
[2024-01-14] MEDS: KETOROLAC 30 MG/ML VIAL IVP ONE (17:03)
[2024-01-14] MEDS: METOCLOPRAMIDE 10 MG/2 ML INJ VIAL IVP ONE (17:05)
[2024-01-14] MEDS: diphenhydrAMINE 50 MG/ML VIAL IVP ONE (17:06)
[2024-01-14] MEDS: ACETAMINOPHEN EXTRA STRENGTH 500 MG TAB PO ONE (18:13)
[2024-01-14] MEDS ORDERED: HYDROcodone/APAP 5/325 MG 1 TAB TAB ONE (18:44)
[2024-01-14] MEDS: HYDROcodone/APAP 5/325 MG 1 TAB TAB PO ONE (18:48)
[2024-01-14] MEDS ORDERED: ACET500T99 PO (18:49)
[2024-01-14] MEDS ORDERED: IBUP-1842 PO (18:49)
[2024-01-14 18:56] VITALS: BP 126/73; PULSE 86; RESP 16; TEMP 97.5; O2SAT 98
[2024-01-15] MEDS ORDERED: IBUP-2213 PO (00:43)
== END 2024-01-14 18:55 | disposition home or self-care (01) ==
LOC: MED 16:17
DX: R51.9 Headache, unspecified (principal); R11.2 Nausea with vomiting, unspecified; M54.6 Pain in thoracic spine; E11.9 Type 2 diabetes mellitus without complications; I10 Essential (primary) hypertension; Z79.899 Other long term (current) drug therapy; Z79.82 Long term (current) use of aspirin
CPT/HCPCS: 96361; 96374; 96375; 99284; J1200; J1885; J2765

== ENCOUNTER 2024-01-14 21:03 | Emergency (ER) | payer OTHER ==
[~2024-01-14] VITALS: Ht 167.6 cm; Wt 71.7 kg
[~2024-01-14 21:03] MED LIST changes: +IBUP-1842 PO
[2024-01-14 21:09] VITALS: BP 153/92; PULSE 78; RESP 20; TEMP 97.5; O2SAT 75
[2024-01-14] MEDS: ACETAMINOPHEN EXTRA STRENGTH 500 MG TAB PO ONE (21:59)
[2024-01-14] MEDS: KETOROLAC 30 MG/ML VIAL IM ONE (21:59)
[2024-01-14 22:40] LABS: BASOPHILS % (AUTO) 0.5 % (0.0-2.0); EOSINOPHILS # (AUTO) 0.1 K/uL (0-0.4); EOSINOPHILS % (AUTO) 1.5 % (0.0-4.0); HEMATOCRIT 35.7 % (36-52); HEMOGLOBIN 12.1 g/dL (12.0-18.0); LYMPHOCYTES # (AUTO) 1.6 K/uL (2.0-11.5); LYMPHOCYTES % (AUTO) 22.9 % (20.5-51.1); MEAN CORPUSCULAR HEMOGLOBIN 32 pg (27-31); MEAN CORPUSCULAR HGB CONC 34 g/dL (33-37); MEAN CORPUSCULAR VOLUME 95.4 fL (80-94); MONOCYTES # (AUTO) 0.8 K/uL (0.8-1.0); MONOCYTES % (AUTO) 10.8 % (1.7-9.3); NEUTROPHILS # (AUTO) 4.5 K/uL (1.8-7.7); NEUTROPHILS % (AUTO) 64.3 % (42.2-75.2); PLATELET COUNT (AUTO) 234 K/uL (140-450); RED BLOOD CELL COUNT(AUTO) 3.74 MIL/uL (4.20-6.10); RED CELL DISTRIBUTION WIDTH 13.7 % (11.6-13.7)
[2024-01-14 23:00] LABS: ALANINE AMINOTRANSFERASE 18 U/L (12-78); ALBUMIN 3.2 g/dL (3.4-5.0); ALKALINE PHOSPHATASE 81 U/L (50-136); ANION GAP 10.7 (8-16); ASPARTATE AMINOTRANSFERASE 16 U/L (15-37); CALCIUM 7.6 mg/dL (8.5-10.1); CARBON DIOXIDE 27.1 mmol/L (21-32); CHLORIDE 100 mmol/L (98-107); CREATININE 0.9 mg/dL (0.6-1.3); GFR ARICAN-AMERICAN 116 mL/min (>90); GFR NON ARICAN-AMERICAN 96 mL/min (>90); GLUCOSE 197 mg/dL (74-106); POTASSIUM 3.8 mmol/L (3.5-5.1); SODIUM SERUM 134 mmol/L (136-145); TOTAL BILIRUBIN 0.4 mg/dL (0.0-1.0); TOTAL PROTEIN, SERUM 6.3 g/dL (6.4-8.2); UREA NITROGEN, BLOOD 16 mg/dL (7-18)
[2024-01-14] MEDS: HYDROcodone/APAP 5/325 MG 1 TAB TAB PO ONE (23:20)
[2024-01-15] MEDS ORDERED: IBUP-2213 PO (00:43)
[2024-01-15 00:47] VITALS: BP 142/86; PULSE 93; RESP 18; TEMP 98; O2SAT 98
[2024-01-16] MEDS ORDERED: PROC-87 PO (10:35)
[2024-01-16] MEDS ORDERED: [UNRECOGNIZED DRUG - CODE] PO (10:35)
== END 2024-01-15 00:40 | disposition home or self-care (01) ==
LOC: MED 21:03
DX: G89.29 Other chronic pain (principal); R51.9 Headache, unspecified; R07.9 Chest pain, unspecified; J02.9 Acute pharyngitis, unspecified; E11.9 Type 2 diabetes mellitus without complications; I10 Essential (primary) hypertension; E78.5 Hyperlipidemia, unspecified; Z79.899 Other long term (current) drug therapy; Z79.82 Long term (current) use of aspirin
CPT/HCPCS: 36415; 71045; 80053; 84484; 85025; 93005; 96372; 99285; J1885; Q0092

== ENCOUNTER 2024-01-16 08:01 | Emergency (ER) | payer OTHER ==
[~2024-01-16] VITALS: Ht 167.6 cm; Wt 71.0 kg
[2024-01-16 08:04] VITALS: BP 137/90; PULSE 72; RESP 18; TEMP 97.2; O2SAT 99
[2024-01-16 08:23] VITALS: O2SAT 98
[2024-01-16] MEDS: diphenhydrAMINE 50 MG/ML VIAL IVP ONE (08:46)
[2024-01-16] MEDS: KETOROLAC 30 MG/ML VIAL IVP ONE (08:46)
[2024-01-16] MEDS: PROCHLORPERAZINE 10 MG/2 ML VIAL IVP ONE (08:47)
[2024-01-16] MEDS: DEXAMETHASONE 4 MG/ML VIAL IVP ONE (09:46)
[2024-01-16] MEDS: MAG SULF 2000 MG/WATER PREMIX 50 ML IV ONE (09:47)
[2024-01-16] MEDS ORDERED: [UNRECOGNIZED DRUG - CODE] PO (10:35)
[2024-01-16] MEDS ORDERED: PROC-87 PO (10:35)
== END 2024-01-16 11:06 | disposition home or self-care (01) ==
LOC: MED 08:01
DX: G43.909 Migraine, unspecified, not intractable, without status migrainosus (principal); E11.9 Type 2 diabetes mellitus without complications; I10 Essential (primary) hypertension; E78.5 Hyperlipidemia, unspecified; Z79.899 Other long term (current) drug therapy; Z79.82 Long term (current) use of aspirin
CPT/HCPCS: 96365; 96375; 99284; J0780; J1100; J1200; J1885; J3475